=== PATIENT | male | born 1965 | race Caucasian/White ===

== ENCOUNTER 2017-08-01 20:10 | Emergency (ER) | payer MEDICAID, SELFPAY ==
[2017-08-01] MEDS ORDERED: CLOPIDOGREL 300 MG TAB (PLAVIX) ×2 (20:11)
[2017-08-01] MEDS ORDERED: HEPARIN 25,000 UNITS/250 ML D5W BAG (100 UNITS/ML) ×2 (20:11)
[2017-08-01] MEDS ORDERED: HEPARIN SOD (PORCINE) 5000 UNITS/ML VIAL ×2 (20:11)
[2017-08-01] MEDS ORDERED: ASPIRIN 81 MG CHEW TABLET ×2 (20:11)
[2017-08-01] MEDS: CLOPIDOGREL 300 MG TAB (PLAVIX) PO ×2 (20:44)
[2017-08-01] MEDS: ASPIRIN 81 MG CHEW TABLET PO ×2 (20:44)
[2017-08-01] MEDS: NS 1,000 ML IV ×2 (20:44)
[2017-08-01] MEDS: TENECTEPLASE 50 MG KIT (TNKase)(J3101) IV ×2 (20:45)
[2017-08-01] MEDS: MORPHINE 4 MG/ML 1ML VIAL (J2270) IV ×2 (20:48)
[2017-08-01] MEDS: HEPARIN SOD (PORCINE) 5000 UNITS/ML VIAL IV ×2 (20:49)
[2017-08-01] MEDS: HEPARIN DRIP 25,000 UNITS in APPROPRIATE DILUENT 1 EA IV (20:50)
[2017-08-01 20:52] LABS: HEMATOCRIT 45.7 % (42.0-52.0); MEAN CORPUSCULAR HEMOGLOBIN 30.5 pg (27.0-33.0); MEAN CORPUSCULAR VOLUME 87.2 fl (80.0-96.0); PLATELET COUNT, AUTOMATED 307 10^3/uL (150-450); RED BLOOD COUNT 5.24 10^6/uL (4.30-6.10); RED CELL DISTRIBUTION WIDTH 12.5 % (11.5-14.5)
[2017-08-01 20:54] LABS: ADD MANUAL DIFFER YES; DIFF SLIDE NUMBER 358; POSITIVE DIFF POS FLAG; WHITE BLOOD COUNT 14.2 10^3/uL (4.0-10.0)
[2017-08-01 20:58] LABS: PROTHROMBIN TIME 13.3 SECONDS (12.4-14.5)
[2017-08-01 20:59] LABS: PARTIAL THROMBOPLASTIN TIME 25.8 SECONDS (26.8-37.9)
[2017-08-01 21:03] LABS: ANION GAP 8 MEQ/L (8-16); BLOOD UREA NITROGEN 13 MG/DL (7-18); CALCIUM LEVEL 9.3 MG/DL (8.5-10.1); CARBON DIOXIDE LEVEL 27 MEQ/L (21-32); CHLORIDE LEVEL 106 MEQ/L (98-107); CPK CREATINE PHOSPHOKINASE 118 U/L (39-308); CREATININE FOR GFR 0.93 MG/DL (0.70-1.30); GLOMERULAR FILTRATION RATE > 60.0 (>56); GLUCOSE, FASTING 120 MG/DL (70-100); POTASSIUM SERUM 3.7 MEQ/L (3.5-5.1); SODIUM LEVEL 141 MEQ/L (136-145); TROPONIN I 0.05 NG/ML (< 0.10)
[2017-08-01 21:04] LABS: CK-MB VALUE MASS 1.2 NG/ML (0.0-3.6); MB/CK RELATIVE INDEX 1.01 (< OR =4)
[2017-08-01 21:08] LABS: ATYPICAL LYMPH 6 % (0-5); EOSINOPHILS 4 % (0-5); LYMPHOCYTES 42 % (16-52); MONOCYTES 4 % (0-8); NEUTROPHILS 44 % (35-75)
[2017-08-01 21:09] LABS: PLATELET ESTIMATE NORMAL (NORMAL)
[2017-08-01] MEDS: fentaNYL 100 MCG/2 ML INJECTION (J3010) IV ×2 (21:16)
== END 2017-08-01 21:34 | disposition short-term general hospital (02) ==
LOC: M ED 20:10
DX: I21.3 ST elevation (STEMI) myocardial infarction of unspecified site (principal); F41.9 Anxiety disorder, unspecified; Z91.010 Allergy to peanuts
CPT/HCPCS: J2270

== ENCOUNTER 2017-08-22 12:40 | Emergency (ER) | payer MEDICAID, SELFPAY ==
[2017-08-22 13:42] LABS: BASO # 0.1 10^3/uL (0.0-0.2); BASO % 0.5 % (0.0-1.0); EOS # 0.5 10^3/uL (0.0-0.50); HEMATOCRIT 45.7 % (42.0-52.0); HEMOGLOBIN 16.1 g/dl (14.0-18.0); IMMATURE GRANULOCYTE % 1.1 % (0-3.0); LYMPH # 2.8 10^3/uL (1.5-4.5); LYMPH % 26.3 % (24.0-44.0); MEAN CORPUSCULAR HEMOGLOBIN 30.3 pg (27.0-33.0); MEAN CORPUSCULAR HGB CONC 35.2 g/dl (32.0-36.5); MEAN CORPUSCULAR VOLUME 86.1 fl (80.0-96.0); MONO # 0.8 10^3/uL (0.0-0.8); MONO % 7.1 % (0.0-5.0); NEUTROPHILS # 6.4 10^3/uL (1.8-7.7); PLATELET COUNT, AUTOMATED 275 10^3/uL (150-450); RED BLOOD COUNT 5.31 10^6/uL (4.30-6.10); RED CELL DISTRIBUTION WIDTH 12.2 % (11.5-14.5); WHITE BLOOD COUNT 10.7 10^3/uL (4.0-10.0)
[2017-08-22 13:55] LABS: INR 0.99; PROTHROMBIN TIME 13.2 SECONDS (12.4-14.5)
[2017-08-22 13:56] LABS: PARTIAL THROMBOPLASTIN TIME 28.3 SECONDS (26.8-37.9)
[2017-08-22] MEDS: ASPIRIN 81 MG CHEW TABLET PO (14:15)
[2017-08-22 14:19] LABS: ALBUMIN 3.9 GM/DL (3.2-5.2); ALBUMIN/GLOBULIN RATIO 1.18 (1.00-1.93); ALKALINE PHOSPHATASE 138 U/L (45-117); ALT/SGPT 51 U/L (12-78); ANION GAP 8 MEQ/L (8-16); AST/SGOT 30 U/L (7-37); BILIRUBIN,DIRECT 0.2 MG/DL (0.0-0.2); BILIRUBIN,TOTAL 0.6 MG/DL (0.2-1.0); BLOOD UREA NITROGEN 14 MG/DL (7-18); CALCIUM LEVEL 8.7 MG/DL (8.5-10.1); CARBON DIOXIDE LEVEL 26 MEQ/L (21-32); CHLORIDE LEVEL 106 MEQ/L (98-107); CPK CREATINE PHOSPHOKINASE 117 U/L (39-308); CREATININE FOR GFR 0.72 MG/DL (0.70-1.30); FREE T4 0.96 NG/DL (0.76-1.46); GLOMERULAR FILTRATION RATE > 60.0 (>56); GLUCOSE, FASTING 95 MG/DL (70-100); LIPASE 149 U/L (73-393); POTASSIUM SERUM 4.5 MEQ/L (3.5-5.1); SODIUM LEVEL 140 MEQ/L (136-145); TOTAL PROTEIN 7.2 GM/DL (6.4-8.2); TROPONIN I < 0.02 NG/ML (< 0.10)
[2017-08-22 14:24] LABS: CK-MB VALUE MASS 1.4 NG/ML (0.0-3.6); MB/CK RELATIVE INDEX 1.19 (< OR =4)
[2017-08-22] MEDS: HEPARIN DRIP 25,000 UNITS in APPROPRIATE DILUENT 1 EA IV (15:06)
[2017-08-22] MEDS: HEPARIN SOD (PORCINE) 5000 UNITS/ML VIAL IV (15:15)
== END 2017-08-22 15:52 | disposition short-term general hospital (02) ==
LOC: M ED 12:40
DX: I25.110 Atherosclerotic heart disease of native coronary artery with unstable angina pectoris (principal); R00.1 Bradycardia, unspecified; I25.2 Old myocardial infarction; I11.9 Hypertensive heart disease without heart failure; E78.5 Hyperlipidemia, unspecified; Z95.5 Presence of coronary angioplasty implant and graft; F17.210 Nicotine dependence, cigarettes, uncomplicated; Z91.010 Allergy to peanuts; Z79.899 Other long term (current) drug therapy; Z79.02 Long term (current) use of antithrombotics/antiplatelets
CPT/HCPCS: 71045

== ENCOUNTER → 2018-02-15 | Outpatient (CLI) | payer OTHER | LOC: M CARPUL 10:44 | DX: F17.210 Nicotine dependence, cigarettes, uncomplicated (principal); R05 Cough; R06.02 Shortness of breath | CPT/HCPCS: 94010 ==

== ENCOUNTER → 2018-03-10 | Outpatient (CLI) | payer OTHER | LOC: M RAD 09:10 | DX: R05 Cough (principal); R06.02 Shortness of breath; J84.9 Interstitial pulmonary disease, unspecified | CPT/HCPCS: 71046 ==

== ENCOUNTER → 2018-04-19 | Outpatient (CLI) | payer OTHER ==
[~2018-04-19] MED LIST: ISOVUE-370 76% 100ML VIAL (Q9967) As Ordered
[2018-04-19 16:23] LABS: BASO % 0.3 % (0.0-1.0); EOS # 0.4 10^3/uL (0.0-0.50); EOS % 3.6 % (0.0-3.0); HEMATOCRIT 43.6 % (42.0-52.0); HEMOGLOBIN 14.4 g/dl (13.5-17.5); IMMATURE GRANULOCYTE % 0.6 % (0-3.0); LYMPH % 20.3 % (24.0-44.0); MEAN CORPUSCULAR HEMOGLOBIN 29.9 pg (27.0-33.0); MEAN CORPUSCULAR VOLUME 90.5 fl (80.0-96.0); MONO # 0.8 10^3/uL (0.0-0.8); NEUTROPHILS # 6.7 10^3/uL (1.8-7.7); NEUTROPHILS % 67.2 % (36.0-66.0); PLATELET COUNT, AUTOMATED 291 10^3/uL (150-450); RED BLOOD COUNT 4.82 10^6/uL (4.30-6.10); RED CELL DISTRIBUTION WIDTH 12.3 % (11.5-14.5)
[2018-04-19 16:56] LABS: ALBUMIN 3.7 GM/DL (3.2-5.2); ALBUMIN/GLOBULIN RATIO 1.37 (1.00-1.93); ALKALINE PHOSPHATASE 121 U/L (45-117); ALT/SGPT 30 U/L (12-78); ANION GAP 4 MEQ/L (8-16); AST/SGOT 24 U/L (7-37); BILIRUBIN,TOTAL 0.4 MG/DL (0.2-1.0); BLOOD UREA NITROGEN 11 MG/DL (7-18); CALCIUM LEVEL 8.3 MG/DL (8.5-10.1); CARBON DIOXIDE LEVEL 30 MEQ/L (21-32); CHLORIDE LEVEL 107 MEQ/L (98-107); FREE T4 0.96 NG/DL (0.76-1.46); GLOMERULAR FILTRATION RATE > 60.0 (>56); GLUCOSE, FASTING 99 MG/DL (70-100); SODIUM LEVEL 141 MEQ/L (136-145); THYROID STIMULATING HORMONE 0.945 uIU/ML (0.358-3.740); TOTAL PROTEIN 6.4 GM/DL (6.4-8.2)
[2018-04-19 17:01] LABS: APPEARANCE, URINE CLEAR (CLEAR); BACTERIA, URINE AUTO NEGATIVE (NEGATIVE); BILIRUBIN, URINE AUTO NEGATIVE (NEGATIVE); BLOOD, URINE BLOOD NEGATIVE (NEGATIVE); COLOR, URINE YELLOW (YELLOW); GLUCOSE, URINE (UA) AUTO NEGATIVE (NEGATIVE); KETONE, URINE AUTO NEGATIVE (NEGATIVE); LEUKOCYTE ESTERASE, URINE AUTO NEGATIVE (NEGATIVE); MUCUS, URINE SMALL (NEGATIVE); NITRITE, URINE AUTO NEGATIVE (NEGATIVE); PROTEIN, URINE AUTO NEGATIVE (NEGATIVE); RBC, URINE AUTO 0 /HPF (0-3); SPECIFIC GRAVITY URINE AUTO 1.051 (1.002-1.035); SQUAMOUS EPITHELIAL CELL UR AU 0 /HPF (0-6); WBC, URINE AUTO 1 /HPF (0-3)
== END ==
LOC: M RAD 15:10
DX: R04.2 Hemoptysis (principal); E78.5 Hyperlipidemia, unspecified; R53.83 Other fatigue
CPT/HCPCS: Q9967

== ENCOUNTER → 2018-08-11 | Outpatient (CLI) | payer OTHER ==
[~2018-08-11] MED LIST changes: +ATOR80TA59 PO; +E-Z-GAS II EFFERVESCENT PACKET (SODIUM BICARB./CITRIC ACID/SIMETHICONE) As Ordered ONE; +E-Z-HD 98% w/w 340GM SUSP BTL As Ordered ONE; +E-Z-PAQUE 96% w/w SUSP 176GM BTL As Ordered ONE; -ISOVUE-370 76% 100ML VIAL (Q9967) As Ordered; +LISI-542 PO; +METO1TAB32 PO; +PLAV1TAB2 PO
--- NOTE | 2018-08-14 10:58 | REP ---
Esophagram The procedure was performed under the direct supervision of Dr. Disla. The images were reviewed with Dr. Disla. A single view PA chest x-ray is submitted as a commercial credit specialist film. The superior mediastinal structures are midline. The heart size is within normal limits. The lungs are clear. Liquid barium and gas producing granules were given in the erect position as well as liquid barium in the prone oblique positions in order to perform a double contrast esophagram examination. The oral and pharyngeal stages of deglutition are unremarkable. Esophageal transport is prompt and efficient and there is no esophagitis, stricture, mucosal ring or hiatal hernia. Gastroesophageal reflux is not demonstrated on this examination. Impression: Essentially unremarkable double contrast esophagram examination. 0.5 minutes of fluoro time was utilized for this procedure. Reviewed by GALILEO Germain 08/11/2018 05:02 P Electronically Signed by Rick Disla MD 08/14/2018 10:50 A
== END ==
LOC: M RAD 10:21
PROVIDERS: ATTEND Nurse Practitioner Family
DX: R13.12 Dysphagia, oropharyngeal phase (principal)

== ENCOUNTER → 2018-09-13 | Outpatient (CLI) | payer OTHER ==
[~2018-09-13] MED LIST changes: -E-Z-GAS II EFFERVESCENT PACKET (SODIUM BICARB./CITRIC ACID/SIMETHICONE) As Ordered ONE; -E-Z-HD 98% w/w 340GM SUSP BTL As Ordered ONE; -E-Z-PAQUE 96% w/w SUSP 176GM BTL As Ordered ONE
[2018-09-13 11:37] LABS: ALBUMIN 4.1 GM/DL (3.2-5.2); ALT/SGPT 35 U/L (12-78); BILIRUBIN,TOTAL 0.7 MG/DL (0.2-1.0); BLOOD UREA NITROGEN 13 MG/DL (7-18); CALCIUM LEVEL 8.5 MG/DL (8.5-10.1); CARBON DIOXIDE LEVEL 27 MEQ/L (21-32); CHLORIDE LEVEL 105 MEQ/L (98-107); CHOLESTEROL LEVEL 110 MG/DL (<200); CHOLESTEROL RISK RATIO 2.894 (<5); CREATININE FOR GFR 0.76 MG/DL (0.70-1.30); GLOMERULAR FILTRATION RATE > 60.0 (>56); GLUCOSE, FASTING 122 MG/DL (70-100); HDL CHOLESTEROL 38 MG/DL (>40); LDL CHOLESTEROL 24 MG/DL (<100); NON-HDL-C 72 MG/DL; POTASSIUM SERUM 3.8 MEQ/L (3.5-5.1); SODIUM LEVEL 139 MEQ/L (136-145); TOTAL PROTEIN 6.9 GM/DL (6.4-8.2); TRIGLYCERIDES LEVEL 242 MG/DL (<150)
== END ==
LOC: M LAB 10:23
PROVIDERS: ATTEND Nurse Practitioner Family
DX: Z12.5 Encounter for screening for malignant neoplasm of prostate (principal); E78.5 Hyperlipidemia, unspecified

== ENCOUNTER → 2018-09-13 | Outpatient (CLI) | payer OTHER ==
[2018-09-13 11:37] LABS: ALT/SGPT 35 U/L (12-78); BLOOD UREA NITROGEN 13 MG/DL (7-18); CALCIUM LEVEL 8.6 MG/DL (8.5-10.1); CARBON DIOXIDE LEVEL 26 MEQ/L (21-32); CHLORIDE LEVEL 105 MEQ/L (98-107); CHOLESTEROL LEVEL 108 MG/DL (<200); CHOLESTEROL RISK RATIO 2.769 (<5); CPK CREATINE PHOSPHOKINASE 224 U/L (39-308); CREATININE FOR GFR 0.76 MG/DL (0.70-1.30); GLOMERULAR FILTRATION RATE > 60.0 (>56); GLUCOSE, FASTING 126 MG/DL (70-100); HDL CHOLESTEROL 39 MG/DL (>40); LDL CHOLESTEROL 19 MG/DL (<100); NON-HDL-C 69 MG/DL; POTASSIUM SERUM 3.7 MEQ/L (3.5-5.1); SODIUM LEVEL 140 MEQ/L (136-145); TRIGLYCERIDES LEVEL 248 MG/DL (<150)
== END ==
LOC: M LAB 10:19
PROVIDERS: ATTEND Internal Medicine Interventional Cardiology
DX: I25.10 Atherosclerotic heart disease of native coronary artery without angina pectoris (principal); E78.5 Hyperlipidemia, unspecified; I10 Essential (primary) hypertension

== ENCOUNTER 2018-10-03 11:01 | Day surgery (SDC) | payer OTHER ==
[~2018-10-03] VITALS: Ht 170.2 cm; Wt 76.1 kg
[~2018-10-03 11:01] MED LIST changes: +ASPI81TA85 PO; +INCR1INH INH; +NITR0.4S14 SL; +OMEP40CA2 PO; +VENTAER INH
[2018-10-03] MEDS ORDERED: NS 1,000 ML IV ONE (12:45)
[2018-10-03] MEDS ORDERED: PROPOFOL 200 MG/20 ML VIAL As Ordered ONE ×3 (13:24→14:38)
[2018-10-03] MEDS ORDERED: LIDOCAINE 2% INJ 100 MG/5 ML SDV (FOR ANES.) As Ordered ONE (13:24)
[2018-10-03] MEDS ORDERED: ASPIRIN 325 MG TAB PO ONE (14:00)
--- NOTE | 2018-10-03 14:29 | ROOR ---
Patient Name: Vidal Abbott Procedure Date: 10/03/2018 2:11 PM Date of : 1965 Age: 52 Room: [facility] Gender: Male Note Status: Finalized Procedure: Upper GI endoscopy Indications: Oropharyngeal phase dysphagia, Esophageal reflux Providers: Carlos DUPONT MD Referring MD: Concepcion Xiao NP Requesting Provider: Medicines: Monitored Anesthesia Care Complications: No immediate complications. Procedure: Pre-Anesthesia Assessment: - The heart rate, respiratory rate, oxygen saturations, blood pressure, adequacy of pulmonary ventilation, and response to care were monitored throughout the procedure. The Endoscope was introduced through the mouth, and advanced to the second part of duodenum. The upper GI endoscopy was accomplished without difficulty. The patient tolerated the procedure well. Findings: Small intermittent Hiatal Hernia. The exam was otherwise without abnormality. No endoscopic abnormality was evident in the esophagus to explain the patient's complaint of dysphagia. It was decided, however, to proceed with dilation at the cricopharyngeus and of the entire esophagus. The scope was withdrawn. Dilation was performed with a Rodriguez dilator with no resistance at 54 Fr. Impression: - Small sliding Hiatal Hernia. - The examination was otherwise normal. - No endoscopic esophageal abnormality to explain patient's dysphagia. Empiric dilation-Esophagus dilated with 54 F rodriguez dilator. - No specimens collected. Recommendation: - Observe patient's clinical course. - Continue present medications. - Use/get dentures for proper chewing/mastication before swallowing. Carlos Dupont MD Carlos DUPONT MD 10/03/2018 2:28:50 PM Electronically signed by Carlos DUPONT MD Number of Addenda: 0 Note Initiated On: 10/03/2018 2:11 PM Estimated Blood Loss: Estimated blood loss: none.
--- NOTE | 2018-10-03 14:47 | ROOR ---
Patient Name: Vidal Abbott Procedure Date: 10/03/2018 2:11 PM Date of : 1965 Age: 52 Room: [facility] Gender: Male Note Status: Finalized Procedure: Colonoscopy Indications: Screening for colorectal malignant neoplasm Providers: Carlos DUPONT MD Referring MD: Concepcion Xiao NP Requesting Provider: Medicines: Monitored Anesthesia Care Complications: No immediate complications. Procedure: Pre-Anesthesia Assessment: - The heart rate, respiratory rate, oxygen saturations, blood pressure, adequacy of pulmonary ventilation, and response to care were monitored throughout the procedure. The Colonoscope was introduced through the anus and advanced to the cecum, identified by appendiceal orifice and ileocecal valve. The colonoscopy was performed without difficulty. The patient tolerated the procedure well. The quality of the bowel preparation was adequate and fair. Findings: The perianal and digital rectal examinations were normal. Four sessile polyps were found in the rectum, splenic flexure and cecum. The polyps were diminutive in size. These polyps were removed with a cold snare. Resection and retrieval were complete. The exam was otherwise normal throughout the examined colon. Impression: - Preparation of the colon was fair. - Four diminutive polyps in the rectum, at the splenic flexure and in the cecum, removed with a cold snare. Resected and retrieved. - The exam was otherwise normal to the cecum. Recommendation: - Repeat colonoscopy in 3 years for surveillance. - Repeat colonoscopy in 3 years because the bowel preparation was suboptimal. Carlos Dupont MD Carlos DUPONT MD 10/03/2018 2:47:31 PM Electronically signed by Carlos DUPONT MD Number of Addenda: 0 Note Initiated On: 10/03/2018 2:11 PM Estimated Blood Loss: Estimated blood loss: none.
[2018-10-03 15:21] VITALS: BP 122/90
== END 2018-10-03 15:23 | disposition home or self-care (01) ==
LOC: M OPP 11:01
PROVIDERS: ATTEND Internal Medicine Gastroenterology
DX: Z12.11 Encounter for screening for malignant neoplasm of colon (principal); K62.1 Rectal polyp; K63.5 Polyp of colon; D12.0 Benign neoplasm of cecum; R13.12 Dysphagia, oropharyngeal phase; K21.9 Gastro-esophageal reflux disease without esophagitis; J44.9 Chronic obstructive pulmonary disease, unspecified; Z79.82 Long term (current) use of aspirin; Z79.899 Other long term (current) drug therapy; Z91.010 Allergy to peanuts; F17.210 Nicotine dependence, cigarettes, uncomplicated

== ENCOUNTER → 2018-10-23 | Outpatient (REF) | payer OTHER ==
[2018-10-23 14:11] LABS: ALBUMIN 3.8 GM/DL (3.2-5.2); ALT/SGPT 28 U/L (12-78); BILIRUBIN,TOTAL 0.6 MG/DL (0.2-1.0); BLOOD UREA NITROGEN 15 MG/DL (7-18); CALCIUM LEVEL 8.8 MG/DL (8.5-10.1); CARBON DIOXIDE LEVEL 28 MEQ/L (21-32); CHLORIDE LEVEL 106 MEQ/L (98-107); CREATININE FOR GFR 1.02 MG/DL (0.70-1.30); GLOMERULAR FILTRATION RATE > 60.0 (>56); GLUCOSE, FASTING 93 MG/DL (70-100); POTASSIUM SERUM 4.5 MEQ/L (3.5-5.1); SODIUM LEVEL 139 MEQ/L (136-145); TOTAL PROTEIN 7.3 GM/DL (6.4-8.2)
[2018-10-23 16:20] LABS: HEMOGLOBIN A1c 4.9 %
== END ==
LOC: M SFHCPLAZ 11:11
PROVIDERS: ATTEND Nurse Practitioner Family
DX: E78.5 Hyperlipidemia, unspecified (principal); R73.01 Impaired fasting glucose

== ENCOUNTER → 2019-03-15 | Outpatient (REF) | payer OTHER ==
[2019-03-15 12:32] LABS: HEMATOCRIT 47.7 % (42.0-52.0); HEMOGLOBIN 16.2 g/dl (13.5-17.5); MEAN CORPUSCULAR VOLUME 91.4 fl (80.0-96.0); PLATELET COUNT, AUTOMATED 280 10^3/uL (150-450); RED BLOOD COUNT 5.22 10^6/uL (4.30-6.10); WHITE BLOOD COUNT 9.8 10^3/uL (4.0-10.0)
[2019-03-15 13:02] LABS: ALBUMIN 4.1 GM/DL (3.2-5.2); ALT/SGPT 27 U/L (12-78); BILIRUBIN,TOTAL 0.7 MG/DL (0.2-1.0); BLOOD UREA NITROGEN 11 MG/DL (7-18); CALCIUM LEVEL 9.4 MG/DL (8.5-10.1); CARBON DIOXIDE LEVEL 28 MEQ/L (21-32); CHLORIDE LEVEL 102 MEQ/L (98-107); CREATININE FOR GFR 0.87 MG/DL (0.70-1.30); GLOMERULAR FILTRATION RATE > 60.0 (>56); GLUCOSE, FASTING 84 MG/DL (70-100); POTASSIUM SERUM 4.5 MEQ/L (3.5-5.1); SODIUM LEVEL 137 MEQ/L (136-145); TOTAL PROTEIN 7.3 GM/DL (6.4-8.2)
== END ==
LOC: M SFHCPLAZ 09:14
PROVIDERS: ATTEND Nurse Practitioner Family
DX: E78.5 Hyperlipidemia, unspecified (principal); R73.01 Impaired fasting glucose; I25.10 Atherosclerotic heart disease of native coronary artery without angina pectoris

== ENCOUNTER → 2019-06-18 | Outpatient (CLI) | payer OTHER ==
[~2019-06-18] MED LIST changes: -OMEP40CA2 PO; +OMEP40CA97 PO
--- NOTE | 2019-06-19 02:00 | REPPI ---
Clinical: Chronic obstructive pulmonary disease . Comparison: 03/10/2018 . Technique: PA and lateral. Findings: The mediastinum and cardiac silhouette are normal. The lung marina are clear and without acute consolidation, effusion, or pneumothorax. The skeletal structures are intact and normal. Impression: 1. No acute cardiopulmonary process. Electronically Signed by Marquise Nixon MD 06/19/2019 01:51 A
== END ==
LOC: M PLAIMG 09:47
PROVIDERS: ATTEND Physician Assistant
DX: J44.9 Chronic obstructive pulmonary disease, unspecified (principal)

== ENCOUNTER 2019-09-17 08:58 | Emergency (ER) | payer OTHER ==
[~2019-09-17] VITALS: Ht 170.2 cm; Wt 75.0 kg
[2019-09-17] MEDS ORDERED: KETOROLAC 30 MG/ML VIAL (J1885) IV ONE (09:15)
[2019-09-17] MEDS ORDERED: KETOROLAC 30 MG/ML VIAL (J1885) As Ordered ONE (09:16)
[2019-09-17 09:25] LABS: BASO % 0.6 % (0.0-1.0); EOS # 0.3 10^3/uL (0.0-0.5); HEMATOCRIT 44.1 % (42.0-52.0); LYMPH # 1.7 10^3/uL (1.5-5.0); LYMPH % 23.4 % (24.0-44.0); MEAN CORPUSCULAR HEMOGLOBIN 30.3 pg (27.0-33.0); MEAN CORPUSCULAR VOLUME 89.1 fl (80.0-96.0); MONO # 0.6 10^3/uL (0.0-0.8); MONO % 8.8 % (0.0-5.0); NEUTROPHILS # 4.5 10^3/uL (1.5-8.5); NEUTROPHILS % 62.2 % (36.0-66.0); PLATELET COUNT, AUTOMATED 232 10^3/uL (150-450); RED BLOOD COUNT 4.95 10^6/uL (4.30-6.10); WHITE BLOOD COUNT 7.3 10^3/uL (4.0-10.0)
[2019-09-17 09:50] LABS: BILIRUBIN,DIRECT 0.2 MG/DL (0.0-0.2); BILIRUBIN,TOTAL 0.6 MG/DL (0.2-1.0)
[2019-09-17] MEDS ORDERED: NS 1,000 ML IV SCH (10:00)
--- NOTE | 2019-09-17 10:20 | REP ---
REASON: Right flank pain. COMPARISON: Latest prior 12/02/2014 Lung bases are clear. There is very mild very early cylindrical bronchiectasis. Since the last exam, a 3 mm sized calcification has developed in the interpolar region of the right kidney. In addition, there is mild right-sided hydronephrosis and hydroureter. At the level of the ureterovesical junction in the right, there is a 4 mm size calcification. All of this represents a change from the prior exam. The left kidney and collecting system are within normal limits and unchanged. Limited evaluation of the solid intra-abdominal organs and gallbladder show diffuse low density throughout the liver consistent with fatty infiltration. There are no choleliths. The spleen, pancreas, and adrenal glands are unremarkable and unchanged. The abdominal aorta and paraaortic regions are unremarkable and unchanged. There is no free fluid or free air. The bowel loops and their mesenteries are again seen to be within normal limits. IMPRESSION: 1. There is mild right-sided hydronephrosis and hydroureter secondary to calculus in the distal ureter/ureterovesical junction as described above. In addition, there is a new right-sided nephrolith as described above. 2. Fatty infiltration of the liver. Electronically Signed by Saqib Woodard DO 09/17/2019 11:51 A
[2019-09-17] MEDS ORDERED: OXYC1TAB23 PO (11:17)
[2019-09-17 11:26] VITALS: BP 130/78
== END 2019-09-17 11:36 | disposition home or self-care (01) ==
LOC: M ED 08:58
DX: N20.1 Calculus of ureter (principal); I10 Essential (primary) hypertension; I25.2 Old myocardial infarction; E78.5 Hyperlipidemia, unspecified; Z95.5 Presence of coronary angioplasty implant and graft; Z79.899 Other long term (current) drug therapy; Z79.82 Long term (current) use of aspirin; Z79.01 Long term (current) use of anticoagulants; Z91.010 Allergy to peanuts; F17.210 Nicotine dependence, cigarettes, uncomplicated
CPT/HCPCS: 74176; 80047; 80076; 81001; 83690; 85025; 93041; 96361; 96374; 99285; J1885

== ENCOUNTER 2019-12-06 10:25 | Emergency (ER) | payer OTHER ==
[~2019-12-06] VITALS: Ht 170.2 cm; Wt 76.1 kg
[~2019-12-06 10:25] MED LIST changes: +OXYC1TAB23 PO
--- NOTE | 2019-12-06 12:03 | REP ---
Clinical: Fall. Technique: AP, lateral, bilateral oblique views of the right wrist. Findings: Small ulnar styloid fracture is suggested and should be correlated clinically. Carpal bones and distal radius appear intact. No further acute fracture or dislocation identified. Impression: Acute versus old ulnar styloid fracture. No further acute fracture dislocation identified. Electronically Signed by Marquise Nixon MD 12/06/2019 11:55 A
[2019-12-06 12:22] VITALS: BP 139/81
== END 2019-12-06 12:24 | disposition home or self-care (01) ==
LOC: M ED 10:25
DX: S63.501A Unspecified sprain of right wrist, initial encounter (principal); S52.611A Displaced fracture of right ulna styloid process, initial encounter for closed fracture; W01.0XXA Fall on same level from slipping, tripping and stumbling without subsequent striking against object, initial encounter; Y92.480 Sidewalk as the place of occurrence of the external cause; I25.10 Atherosclerotic heart disease of native coronary artery without angina pectoris; Z79.899 Other long term (current) drug therapy; Z79.82 Long term (current) use of aspirin; Z79.01 Long term (current) use of anticoagulants; Z91.010 Allergy to peanuts; Z87.891 Personal history of nicotine dependence

== ENCOUNTER 2019-12-20 18:15 | Emergency (ER) | payer OTHER ==
[~2019-12-20] VITALS: Ht 170.2 cm; Wt 76.2 kg
[~2019-12-20 18:15] MED LIST changes: -ASPI81TA85 PO; +ASPI81TA86 PO
[2019-12-20] MEDS ORDERED: ASPIRIN 81 MG CHEW TABLET PO ONE (19:00)
[2019-12-20 19:25] LABS: BASO % 0.3 % (0.0-1.0); EOS # 0.5 10^3/uL (0.0-0.5); EOS % 4.8 % (0.0-3.0); HEMATOCRIT 46.3 % (42.0-52.0); HEMOGLOBIN 15.8 g/dl (13.5-17.5); LYMPH # 2.2 10^3/uL (1.5-5.0); LYMPH % 23.4 % (24.0-44.0); MEAN CORPUSCULAR HEMOGLOBIN 30.3 pg (27.0-33.0); MEAN CORPUSCULAR HGB CONC 34.1 g/dl (32.0-36.5); MEAN CORPUSCULAR VOLUME 88.7 fl (80.0-96.0); MONO # 0.8 10^3/uL (0.0-0.8); MONO % 8.2 % (0.0-5.0); NEUTROPHILS # 5.9 10^3/uL (1.5-8.5); NEUTROPHILS % 62.1 % (36.0-66.0); PLATELET COUNT, AUTOMATED 258 10^3/uL (150-450); RED BLOOD COUNT 5.22 10^6/uL (4.30-6.10); WHITE BLOOD COUNT 9.5 10^3/uL (4.0-10.0)
[2019-12-20 20:38] LABS: ALBUMIN 3.9 GM/DL (3.2-5.2); ALT/SGPT 37 U/L (12-78); BILIRUBIN,DIRECT < 0.1 MG/DL (0.0-0.2); BILIRUBIN,TOTAL 0.4 MG/DL (0.2-1.0); LIPASE 120 U/L (73-393); NT-PRO BNP 60 PG/ML (<125); TOTAL PROTEIN 7.1 GM/DL (6.4-8.2)
--- NOTE | 2019-12-20 20:59 | ECGEPIP ---
[facility] - ED Test Date: 2019-12-20 Pat Name: RONDA MEREDITH Department: Room: - Gender: Male Mortgage Funder: : [id number] Requested By: Paty Chung Order Number: [id number] Reading MD: Kenney Romo Measurements Intervals [place] Rate: 79 P: 33 WV: 133 QRS: 11 QRSD: 105 T: 5 QT: 371 QTc: 426 Interpretive Statements SINUS RHYTHM INFERIOR MYOCARDIAL INFARCTION, PROBABLY OLD NSTTW ABNORMALITIES SIMILAR TO 08/22/17 Electronically Signed on 12-20-2019 20:59:48 EDT by Kenney Romo
[2019-12-20 21:15] VITALS: BP 152/96
--- NOTE | 2019-12-21 01:12 | REP ---
CHEST, SINGLE VIEW: There is no evidence of acute infiltrate. No pleural effusion is seen. The heart is normal in size. The mediastinal silhouette is unremarkable. The visualized osseous structures are intact. IMPRESSION: No acute pulmonary disease. Electronically Signed by Rick Disla MD 12/24/2019 09:17 A
== END 2019-12-20 21:27 | disposition home or self-care (01) ==
LOC: M ED 18:15
DX: R07.81 Pleurodynia (principal); R94.31 Abnormal electrocardiogram [ECG] [EKG]; I10 Essential (primary) hypertension; K21.9 Gastro-esophageal reflux disease without esophagitis; E78.5 Hyperlipidemia, unspecified; I25.2 Old myocardial infarction; Z79.82 Long term (current) use of aspirin; Z79.01 Long term (current) use of anticoagulants; Z79.899 Other long term (current) drug therapy; Z95.5 Presence of coronary angioplasty implant and graft; Z91.010 Allergy to peanuts

== ENCOUNTER → 2020-08-11 | Outpatient (CLI) | payer OTHER ==
[~2020-08-11] MED LIST changes: -LISI-542 PO; +LISI-898 PO
[2020-08-11 10:57] LABS: HEMATOCRIT 47.6 % (42.0-52.0); MEAN CORPUSCULAR HEMOGLOBIN 29.9 pg (27.0-33.0); MEAN CORPUSCULAR HGB CONC 33.6 g/dl (32.0-36.5); PLATELET COUNT, AUTOMATED 252 10^3/uL (150-450); RED BLOOD COUNT 5.35 10^6/uL (4.30-6.10)
[2020-08-11 11:29] LABS: ALBUMIN 4.1 GM/DL (3.2-5.2); ALT/SGPT 29 U/L (12-78); BILIRUBIN,TOTAL 0.4 MG/DL (0.2-1.0); BLOOD UREA NITROGEN 14 MG/DL (7-18); CALCIUM LEVEL 8.9 MG/DL (8.5-10.1); CARBON DIOXIDE LEVEL 29 MEQ/L (21-32); CHLORIDE LEVEL 106 MEQ/L (98-107); CHOLESTEROL LEVEL 187 MG/DL (<200); CREATININE FOR GFR 0.81 MG/DL (0.70-1.30); GLOMERULAR FILTRATION RATE > 60.0 (>56); GLUCOSE, FASTING 115 MG/DL (70-100); HDL CHOLESTEROL 41 MG/DL (>40); LDL CHOLESTEROL 73 MG/DL (<100); NON-HDL-C 146 MG/DL; POTASSIUM SERUM 4.1 MEQ/L (3.5-5.1); PROSTATIC SPECIFIC AG MONITOR 3.16 NG/ML (< 4.00); SODIUM LEVEL 138 MEQ/L (136-145); TOTAL PROTEIN 6.9 GM/DL (6.4-8.2); TRIGLYCERIDES LEVEL 363 MG/DL (<150)
== END ==
LOC: M LAB 09:56
PROVIDERS: ATTEND Physician Assistant
DX: Z13.1 Encounter for screening for diabetes mellitus (principal); Z12.5 Encounter for screening for malignant neoplasm of prostate; E78.5 Hyperlipidemia, unspecified; J44.9 Chronic obstructive pulmonary disease, unspecified

== ENCOUNTER 2020-09-14 17:09 | Emergency (ER) | payer OTHER ==
[~2020-09-14] VITALS: Ht 170.2 cm; Wt 76.2 kg
[2020-09-14] MEDS ORDERED: DOXY-342 PO (17:40)
[2020-09-14] MEDS ORDERED: DOXYCYCLINE HYCLATE 100MG TABLET PO ONE (17:45)
[2020-09-14] MEDS ORDERED: NORCO, ANEXSIA 5/325MG TABLET (HYDROcodone/ACETAMINOPHEN) PO ONE (18:05)
[2020-09-14 18:49] VITALS: BP 167/83
== END 2020-09-14 18:51 | disposition home or self-care (01) ==
LOC: M ED 17:09
DX: L03.116 Cellulitis of left lower limb (principal); I10 Essential (primary) hypertension; J44.9 Chronic obstructive pulmonary disease, unspecified; I25.10 Atherosclerotic heart disease of native coronary artery without angina pectoris; Z95.5 Presence of coronary angioplasty implant and graft; Z79.899 Other long term (current) drug therapy; Z79.82 Long term (current) use of aspirin; Z91.010 Allergy to peanuts; F17.210 Nicotine dependence, cigarettes, uncomplicated

== ENCOUNTER → 2020-09-17 | Outpatient (REF) | payer OTHER ==
[~2020-09-17] MED LIST changes: +DOXY-342 PO
== END ==
LOC: M SFHCPLAZ 12:50 → EEVIPCON 12:50
PROVIDERS: ATTEND Nurse Practitioner Adult Health
DX: L03.116 Cellulitis of left lower limb (principal)

== ENCOUNTER → 2021-12-17 | Outpatient (CLI) | payer OTHER ==
[~2021-12-17] MED LIST changes: +CIPR0.3S6 OS; +ERYT5OIN25 OS; -LISI-898 PO; +LISI5TAB11 PO; +OMEP40CA4 PO; -OMEP40CA97 PO
== END ==
LOC: M LABSMTC 09:26
PROVIDERS: ATTEND Anesthesiology
DX: Z11.52 Encounter for screening for COVID-19 (principal); Z20.822 Contact with and (suspected) exposure to COVID-19

== ENCOUNTER → 2022-01-04 | Outpatient (CLI) | payer OTHER ==
[~2022-01-04] MED LIST changes: +CETI-24 PO; +ECOT81TA5 PO
== END ==
LOC: M LABSMTC 09:19
PROVIDERS: ATTEND Anesthesiology
DX: Z01.818 Encounter for other preprocedural examination (principal); Z11.52 Encounter for screening for COVID-19

== ENCOUNTER → 2022-02-01 | Outpatient (CLI) | payer OTHER ==
[~2022-02-01] MED LIST changes: +LEXA5TAB13 PO
== END ==
LOC: M LABSMTC 10:24
PROVIDERS: ATTEND Anesthesiology
DX: Z01.818 Encounter for other preprocedural examination (principal); Z11.52 Encounter for screening for COVID-19

== ENCOUNTER → 2022-04-13 | Outpatient (CLI) | payer OTHER ==
[~2022-04-13] MED LIST changes: +CLOP75TA99 PO; -DOXY-342 PO; +DOXY100C81 PO; -PLAV1TAB2 PO
[2022-04-13 10:45] LABS: BASO # 0.1 10^3/uL (0.0-0.2); BASO % 0.6 % (0.0-1.0); EOS # 0.5 10^3/uL (0.0-0.5); EOS % 5.6 % (0.0-3.0); HEMATOCRIT 44.9 % (42.0-52.0); HEMOGLOBIN 15.1 g/dl (13.5-17.5); LYMPH # 1.8 10^3/uL (1.5-5.0); LYMPH % 19.6 % (24.0-44.0); MEAN CORPUSCULAR HEMOGLOBIN 30.3 pg (27.0-33.0); MEAN CORPUSCULAR HGB CONC 33.6 g/dl (32.0-36.5); MEAN CORPUSCULAR VOLUME 90.2 fl (80.0-96.0); MONO # 0.7 10^3/uL (0.0-0.8); MONO % 8.1 % (2.0-8.0); NEUTROPHILS # 5.8 10^3/uL (1.5-8.5); NEUTROPHILS % 65.2 % (36.0-66.0); PLATELET COUNT, AUTOMATED 347 10^3/uL (150-450); RED BLOOD COUNT 4.98 10^6/uL (4.30-6.10)
[2022-04-13 15:22] LABS: ALBUMIN 3.8 GM/DL (3.2-5.2); ALT/SGPT 58 U/L (12-78); BILIRUBIN,TOTAL 0.4 MG/DL (0.2-1.0); BLOOD UREA NITROGEN 10 MG/DL (7-18); CALCIUM LEVEL 8.9 MG/DL (8.5-10.1); CARBON DIOXIDE LEVEL 26 MEQ/L (21-32); CHLORIDE LEVEL 106 MEQ/L (98-107); GLOMERULAR FILTRATION RATE > 60.0 (>56); GLUCOSE, FASTING 87 MG/DL (70-100); POTASSIUM SERUM 4.1 MEQ/L (3.5-5.1); SODIUM LEVEL 140 MEQ/L (136-145); TOTAL PROTEIN 7.9 GM/DL (6.4-8.2)
== END ==
LOC: M PLALAB 09:48
PROVIDERS: ATTEND Physician Assistant
DX: L02.419 Cutaneous abscess of limb, unspecified (principal); Z12.5 Encounter for screening for malignant neoplasm of prostate
CPT/HCPCS: 36415; 80053; 84153; 85025; 87040; 87522; G0472

== ENCOUNTER → 2022-05-13 | Outpatient (CLI) | payer OTHER | LOC: M LABSMTC 10:32 | PROVIDERS: ATTEND Anesthesiology | DX: Z01.812 Encounter for preprocedural laboratory examination (principal); Z11.52 Encounter for screening for COVID-19 ==

== ENCOUNTER 2022-05-18 08:13 | Day surgery (SDC) | payer OTHER ==
[~2022-05-18] VITALS: Ht 170.2 cm; Wt 55.3 kg
[~2022-05-18 08:13] MED LIST changes: +NS 1,000 ML IV ONE
[2022-05-18 10:08] VITALS: BP 131/74
== END 2022-05-18 11:20 | disposition home or self-care (01) ==
LOC: M OPP 08:13
PROVIDERS: ATTEND Internal Medicine Gastroenterology
DX: Z12.11 Encounter for screening for malignant neoplasm of colon (principal); Z86.010 Personal history of colon polyps; I10 Essential (primary) hypertension; J44.9 Chronic obstructive pulmonary disease, unspecified; I20.9 Angina pectoris, unspecified; E78.00 Pure hypercholesterolemia, unspecified; Z91.011 Allergy to milk products; Z80.52 Family history of malignant neoplasm of bladder; Z80.1 Family history of malignant neoplasm of trachea, bronchus and lung

== ENCOUNTER → 2022-06-28 | Outpatient (CLI) | payer OTHER ==
[~2022-06-28] MED LIST changes: -NS 1,000 ML IV ONE
[2022-06-29 23:20] LABS: PSA TOTAL 3.1 ng/mL (0.0-4.0)
== END ==
LOC: M PLALAB 08:48
PROVIDERS: ATTEND Physician Assistant
DX: R97.20 Elevated prostate specific antigen [PSA] (principal)

== ENCOUNTER → 2022-07-05 | Outpatient (CLI) | payer OTHER ==
[2022-07-05 21:19] LABS: HEPATITIS B SURFACE ANTIGEN NEGATIVE (NEGATIVE); HIV 1&2 SCREEN CENTAUR NEGATIVE (NEGATIVE)
== END ==
LOC: M PLALAB 10:20
PROVIDERS: ATTEND Internal Medicine Infectious Disease
DX: B18.2 Chronic viral hepatitis C (principal)

== ENCOUNTER → 2022-07-05 | Outpatient (REF) | payer OTHER | LOC: M SFHCPLAZ 13:11 | PROVIDERS: ATTEND Internal Medicine Infectious Disease | DX: L02.92 Furuncle, unspecified (principal) ==

== ENCOUNTER → 2022-07-08 | Outpatient (CLI) | payer OTHER | LOC: M PLAIMG 12:03 | PROVIDERS: ATTEND Physician Assistant | DX: J43.9 Emphysema, unspecified (principal); R91.1 Solitary pulmonary nodule ==

== ENCOUNTER → 2022-08-02 | Outpatient (CLI) | payer OTHER ==
[~2022-08-02] MED LIST changes: +BUPR75TA5 PO; +EPCL1TAB PO; +FAMO20TA PO; +TRAZ-252 PO
== END ==
LOC: M LABSMTC 11:52
PROVIDERS: ATTEND Anesthesiology
DX: Z01.812 Encounter for preprocedural laboratory examination (principal)

== ENCOUNTER 2022-08-05 08:28 | Day surgery (SDC) | payer OTHER ==
[~2022-08-05] VITALS: Ht 170.2 cm; Wt 72.6 kg
[~2022-08-05 08:28] MED LIST changes: +NS 1,000 ML IV ONE
[2022-08-05 10:10] VITALS: BP 155/65
[2022-08-05] MEDS ORDERED: propofoL 200 MG/20 ML VIAL As Ordered ONE (10:14)
[2022-08-05] MEDS ORDERED: LIDOCAINE 2% 100MG/5ML SDV (FOR ANES.) As Ordered ONE (10:14)
== END 2022-08-05 10:13 | disposition home or self-care (01) ==
LOC: M OPP 08:28
PROVIDERS: ATTEND Internal Medicine Gastroenterology
DX: Z86.010 Personal history of colon polyps (principal); I25.10 Atherosclerotic heart disease of native coronary artery without angina pectoris; I25.2 Old myocardial infarction; I10 Essential (primary) hypertension; E78.5 Hyperlipidemia, unspecified; K21.9 Gastro-esophageal reflux disease without esophagitis; B19.20 Unspecified viral hepatitis C without hepatic coma; F41.9 Anxiety disorder, unspecified; F32.A Depression, unspecified; F43.10 Post-traumatic stress disorder, unspecified; J44.9 Chronic obstructive pulmonary disease, unspecified; G47.30 Sleep apnea, unspecified; F17.210 Nicotine dependence, cigarettes, uncomplicated; Z95.5 Presence of coronary angioplasty implant and graft; Z91.010 Allergy to peanuts; Z79.01 Long term (current) use of anticoagulants; Z79.82 Long term (current) use of aspirin; Z79.51 Long term (current) use of inhaled steroids; Z79.899 Other long term (current) drug therapy; Z82.49 Family history of ischemic heart disease and other diseases of the circulatory system; Z80.52 Family history of malignant neoplasm of bladder; Z80.51 Family history of malignant neoplasm of kidney; Z80.1 Family history of malignant neoplasm of trachea, bronchus and lung

== ENCOUNTER 2022-10-06 16:40 | Inpatient (IN) | payer OTHER ==
[~2022-10-06] VITALS: Ht 170.2 cm; Wt 75.3 kg
[~2022-10-06 16:40] MED LIST changes: +CIPR0.3S37 OS; -CIPR0.3S6 OS; -NS 1,000 ML IV ONE
[2022-10-06] MEDS ORDERED: NS 2,260 ML in IV 1 EA IV ONE (17:10)
[2022-10-06 17:17] LABS: BASO % 0.2 % (0.0-1.0); HEMOGLOBIN 13.8 g/dl (13.5-17.5); LYMPH # 0.7 10^3/uL (1.5-5.0); LYMPH % 5.7 % (24.0-44.0); MEAN CORPUSCULAR HEMOGLOBIN 29.7 pg (27.0-33.0); MEAN CORPUSCULAR HGB CONC 33.7 g/dl (32.0-36.5); MEAN CORPUSCULAR VOLUME 88.2 fl (80.0-96.0); MONO # 0.8 10^3/uL (0.0-0.8); MONO % 5.8 % (2.0-8.0); NEUTROPHILS # 11.2 10^3/uL (1.5-8.5); NEUTROPHILS % 87.3 % (36.0-66.0); PLATELET COUNT, AUTOMATED 275 10^3/uL (150-450); RED BLOOD COUNT 4.65 10^6/uL (4.30-6.10); WHITE BLOOD COUNT 12.9 10^3/uL (4.0-10.0)
[2022-10-06 17:31] LABS: INR 1.07; PROTHROMBIN TIME 14.1 SECONDS (12.5-14.5)
[2022-10-06 17:37] LABS: CK-MB VALUE MASS < 1.0 NG/ML (<3.6); LIPASE 20 U/L (12-53)
[2022-10-06 17:39] LABS: ALBUMIN 3.6 G/DL (3.2-5.2); ALKALINE PHOSPHATASE 138 U/L (46-116); ALT/SGPT 14 U/L (7.0-40); AST/SGOT 21 U/L (<34); BILIRUBIN,DIRECT 0.4 MG/DL (<0.4); BILIRUBIN,TOTAL 1.1 MG/DL (0.3-1.2); BLOOD UREA NITROGEN 13 MG/DL (9-23); CALCIUM LEVEL 8.7 MG/DL (8.5-10.1); CARBON DIOXIDE LEVEL 24 MMOL/L (20-31); CHLORIDE LEVEL 98 MMOL/L (98-107); CREATININE FOR GFR 0.85 MG/DL (0.70-1.30); GLOMERULAR FILTRATION RATE > 60.0 (>56); GLUCOSE, FASTING 120 MG/DL (60-100); POTASSIUM SERUM 4.2 MMOL/L (3.5-5.1); SODIUM LEVEL 130 MMOL/L (136-145); TOTAL PROTEIN 6.9 G/DL (5.7-8.2)
[2022-10-06 17:42] LABS: FREE T4 0.83 NG/DL (0.89-1.76)
[2022-10-06 17:44] LABS: THYROID STIMULATING HORMONE 0.592 uIU/ML (0.55-4.78)
[2022-10-06 17:48] LABS: CPK CREATINE PHOSPHOKINASE 182 U/L (46-171); MB/CK RELATIVE INDEX 0.54 (< OR =4)
[2022-10-06] MEDS ORDERED: ACETAMINOPHEN TAB 650MG DOSE (2X325MG) PO ONE (17:50)
[2022-10-06 18:55] LABS: CK-MB VALUE MASS < 1.0 NG/ML (<3.6)
[2022-10-06 18:56] LABS: CPK CREATINE PHOSPHOKINASE 155 U/L (46-171); MB/CK RELATIVE INDEX 0.64 (< OR =4)
[2022-10-06 19:08] LABS: APPEARANCE, URINE CLEAR (CLEAR); BACTERIA, URINE AUTO NEGATIVE (NEGATIVE); BILIRUBIN, URINE AUTO NEGATIVE (NEGATIVE); BLOOD, URINE BLOOD NEGATIVE (NEGATIVE); COLOR, URINE YELLOW (YELLOW); GLUCOSE, URINE (UA) AUTO NEGATIVE (NEGATIVE); KETONE, URINE AUTO NEGATIVE (NEGATIVE); LEUKOCYTE ESTERASE, URINE AUTO NEGATIVE (NEGATIVE); MUCUS, URINE SMALL (NEGATIVE); NITRITE, URINE AUTO NEGATIVE (NEGATIVE); PROTEIN, URINE AUTO NEGATIVE (NEGATIVE); RBC, URINE AUTO 0 /HPF (0-3); SPECIFIC GRAVITY URINE AUTO 1.023 (1.002-1.035); SQUAMOUS EPITHELIAL CELL UR AU 0 /HPF (0-6); WBC, URINE AUTO 1 /HPF (0-3)
[2022-10-06 19:31] LABS: AMPHETAMINES LEVEL URINE NEGATIVE (NEGATIVE); BARBITURATES URINE NEGATIVE (NEGATIVE); BENZODIAZEPINES URINE NEGATIVE (NEGATIVE); CANNABINOIDS URINE NEGATIVE (NEGATIVE); METHADONE URINE NEGATIVE (NEGATIVE); PHENCYCLIDINE URINE NEGATIVE (NEGATIVE)
[2022-10-06 19:32] LABS: OPIATES URINE NEGATIVE (NEGATIVE)
[2022-10-06 19:38] LABS: COCAINE METABOLITE URINE POSITIVE (NEGATIVE)
[2022-10-06] MEDS ORDERED: CEFTAROLINE FOSAMIL 600 MG in D5W MINI-BAG PLUS 50 ML IV ONE (20:05)
[2022-10-06] MEDS ORDERED: ESCITALOPRAM OXALATE 10 MG TAB (LEXAPRO) PO SCH (21:00)
[2022-10-06] MEDS ORDERED: LEXA1TAB PO (22:34)
[2022-10-06] MEDS ORDERED: ALBU8.5H INH (22:34)
[2022-10-06] MEDS ORDERED: INCR1INH INH (22:34)
[2022-10-06] MEDS ORDERED: IBUP1TAB7 PO (22:34)
[2022-10-06] MEDS ORDERED: NITR4TASL SL (22:34)
[2022-10-06] MEDS ORDERED: ASPI-655 PO (22:34)
[2022-10-06] MEDS ORDERED: HOME MED LIST COMPLETE! XX SCH (22:40)
[2022-10-06] MEDS ORDERED: NS 1,000 ML IV SCH (23:25)
[2022-10-07] MEDS ORDERED: FAMOTIDINE 20 MG TAB PO PRN (00:25)
[2022-10-07] MEDS ORDERED: IBUPROFEN 800 MG TAB PO PRN (00:25)
[2022-10-07] MEDS ORDERED: ALBUTEROL 90 MCG/ACT 8GM HFA INHALER INH PRN (00:25)
[2022-10-07] MEDS ORDERED: VANCOMYCIN HCL 750 MG, VIAL MATE ADAPTER 1 EACH in D5W 250 ML IV ONE ×4 (01:00)
[2022-10-07 06:10] LABS: HEMATOCRIT 37.4 % (42.0-52.0); HEMOGLOBIN 12.4 g/dl (13.5-17.5); MEAN CORPUSCULAR HEMOGLOBIN 29.9 pg (27.0-33.0); MEAN CORPUSCULAR HGB CONC 33.2 g/dl (32.0-36.5); MEAN CORPUSCULAR VOLUME 90.1 fl (80.0-96.0); PLATELET COUNT, AUTOMATED 239 10^3/uL (150-450); RED BLOOD COUNT 4.15 10^6/uL (4.30-6.10); WHITE BLOOD COUNT 10.4 10^3/uL (4.0-10.0)
[2022-10-07 07:05] LABS: ALBUMIN 3.1 G/DL (3.2-5.2); ALKALINE PHOSPHATASE 117 U/L (46-116); ALT/SGPT 14 U/L (7.0-40); AST/SGOT 19 U/L (<34); BILIRUBIN,TOTAL 0.9 MG/DL (0.3-1.2); BLOOD UREA NITROGEN 12 MG/DL (9-23); CALCIUM LEVEL 8.1 MG/DL (8.5-10.1); CARBON DIOXIDE LEVEL 23 MMOL/L (20-31); CHLORIDE LEVEL 101 MMOL/L (98-107); CREATININE FOR GFR 0.77 MG/DL (0.70-1.30); GLOMERULAR FILTRATION RATE > 60.0 (>56); GLUCOSE, FASTING 107 MG/DL (60-100); MAGNESIUM LEVEL 1.7 MG/DL (1.8-2.4); POTASSIUM SERUM 4.2 MMOL/L (3.5-5.1); SODIUM LEVEL 133 MMOL/L (136-145); TOTAL PROTEIN 6.3 G/DL (5.7-8.2)
[2022-10-07] MEDS ORDERED: MAG SULF 1GM/100ML (MAG RUN) 1 GM in IV 1 EA IV ONE (08:30)
[2022-10-07 08:40] VITALS: BP 130/76
[2022-10-07 08:53] VITALS: BP 130/73
[2022-10-07] MEDS ORDERED: buPROPion 75 MG TAB PO SCH (09:00)
[2022-10-07] MEDS ORDERED: ATORVASTATIN 20 MG TAB PO SCH (09:00)
[2022-10-07] MEDS ORDERED: VANCOMYCIN HCL 1,000 MG, VIAL MATE ADAPTER 1 EACH in NS 250 ML IV SCH (09:00)
[2022-10-07] MEDS ORDERED: lisinopriL 5 MG TAB PO SCH (09:00)
[2022-10-07] MEDS ORDERED: CETIRIZINE (ZyrTEC) 10 MG TAB PO SCH (09:00)
[2022-10-07] MEDS ORDERED: MAGNESIUM OXIDE 400MG TAB (MAG-OX) PO SCH (09:00)
[2022-10-07] MEDS ORDERED: METOPROLOL SUCC *XL* 12.5MG PER 1/2 TAB (TopROL *XL*) PO SCH (09:00)
[2022-10-07] MEDS ORDERED: ASPIRIN 81MG CHEW TABLET PO SCH (09:00)
[2022-10-07] MEDS ORDERED: CLOPIDOGREL 75 MG TAB PO SCH (09:00)
[2022-10-07 12:00] VITALS: BP 146/82
== END 2022-10-07 14:45 | disposition left against medical advice (07) | DRG 720 ==
LOC: EDBD 16:40 → M ED 16:40 → M ED INP 23:22
PROVIDERS: ADMIT Internal Medicine; ATTEND Internal Medicine Nephrology
DX: A41.01 Sepsis due to Methicillin susceptible Staphylococcus aureus (principal); E87.20 Acidosis, unspecified; I10 Essential (primary) hypertension; I25.10 Atherosclerotic heart disease of native coronary artery without angina pectoris; L03.116 Cellulitis of left lower limb; E78.5 Hyperlipidemia, unspecified; B18.2 Chronic viral hepatitis C; F17.200 Nicotine dependence, unspecified, uncomplicated; J44.9 Chronic obstructive pulmonary disease, unspecified; F14.10 Cocaine abuse, uncomplicated; R74.8 Abnormal levels of other serum enzymes; L02.411 Cutaneous abscess of right axilla; K21.9 Gastro-esophageal reflux disease without esophagitis; Z79.82 Long term (current) use of aspirin; Z79.02 Long term (current) use of antithrombotics/antiplatelets; Z79.899 Other long term (current) drug therapy; Z91.010 Allergy to peanuts; Z95.5 Presence of coronary angioplasty implant and graft

== ENCOUNTER 2022-10-18 23:17 | Inpatient (IN) | payer OTHER ==
[~2022-10-18] VITALS: Ht 170.2 cm; Wt 77.5 kg
[~2022-10-18 23:17] MED LIST changes: +ALBU8.5H INH; +ASPI-655 PO; +IBUP1TAB7 PO; +LEXA1TAB PO; +NITR4TASL SL
[2022-10-19] VITALS (26 sets, daily range): BP systolic 86–113; BP diastolic 55–68
[2022-10-19] MEDS ORDERED: NS 1,000 ML IV ONE ×3 (00:25→09:35)
[2022-10-19] MEDS ORDERED: ACETAMINOPHEN TAB 650MG DOSE (2X325MG) PO ONE (00:25)
[2022-10-19] MEDS ORDERED: NS 1,320 ML in IV 1 EA IV ONE (00:40)
[2022-10-19] MEDS ORDERED: PIPERACILLIN/TAZOBACTAM SOD 4.5 GM in D5W MINI-BAG PLUS 50 ML IV ONE (00:40)
[2022-10-19 00:42] LABS: CK-MB VALUE MASS < 1.0 NG/ML (<3.6)
[2022-10-19 00:43] LABS: ALBUMIN 3.2 G/DL (3.2-5.2); ALKALINE PHOSPHATASE 199 U/L (46-116); ALT/SGPT 46 U/L (7.0-40); AST/SGOT 138 U/L (<34); BILIRUBIN,TOTAL 1.8 MG/DL (0.3-1.2); BLOOD UREA NITROGEN 17 MG/DL (9-23); CALCIUM LEVEL 8.7 MG/DL (8.5-10.1); CARBON DIOXIDE LEVEL 21 MMOL/L (20-31); CHLORIDE LEVEL 104 MMOL/L (98-107); CPK CREATINE PHOSPHOKINASE 88 U/L (46-171); GLOMERULAR FILTRATION RATE > 60.0 (>56); GLUCOSE, FASTING 111 MG/DL (60-100); MB/CK RELATIVE INDEX 1.13 (< OR =4); POTASSIUM SERUM 4.4 MMOL/L (3.5-5.1); SODIUM LEVEL 136 MMOL/L (136-145)
[2022-10-19 00:49] LABS: HEMATOCRIT 42.9 % (42.0-52.0); HEMOGLOBIN 14.2 g/dl (13.5-17.5); MEAN CORPUSCULAR HEMOGLOBIN 29.8 pg (27.0-33.0); MEAN CORPUSCULAR HGB CONC 33.1 g/dl (32.0-36.5); MEAN CORPUSCULAR VOLUME 89.9 fl (80.0-96.0); PLATELET COUNT, AUTOMATED 311 10^3/uL (150-450); RED BLOOD COUNT 4.77 10^6/uL (4.30-6.10); WHITE BLOOD COUNT 3.2 10^3/uL (4.0-10.0)
[2022-10-19 01:18] LABS: INR 1.02; PROTHROMBIN TIME 13.6 SECONDS (12.5-14.5)
[2022-10-19 01:19] LABS: PARTIAL THROMBOPLASTIN TIME 25.5 SECONDS (24.8-34.2)
[2022-10-19 01:33] LABS: ATYPICAL LYMPH 2 % (0-5); BASOPHILS 1 % (0-1); EOSINOPHILS 1 % (0-3); LYMPHOCYTES 15 % (16-44); METAMYELOCYTES 1 % (0-0); MONOCYTES 1 % (0-5); NEUTROPHILS 70 % (28-66); PLATELET ESTIMATE NORMAL (NORMAL)
[2022-10-19] MEDS ORDERED: ACETAMINOPHEN TAB 650MG DOSE (2X325MG) PO PRN (03:45)
[2022-10-19] MEDS ORDERED: NS 1,000 ML IV SCH (03:45)
[2022-10-19] MEDS ORDERED: MORPHINE 2 MG/ML 1ML VIAL IV PRN (03:55)
[2022-10-19] MEDS ORDERED: NICOTINE 21MG/24HR 1 EA TRANSDERMAL TD PRN (04:05)
[2022-10-19 04:10] LABS: APPEARANCE, URINE CLEAR (CLEAR); BACTERIA, URINE AUTO NEGATIVE (NEGATIVE); BILIRUBIN, URINE AUTO NEGATIVE (NEGATIVE); BLOOD, URINE BLOOD NEGATIVE (NEGATIVE); COLOR, URINE YELLOW (YELLOW); GLUCOSE, URINE (UA) AUTO NEGATIVE (NEGATIVE); KETONE, URINE AUTO NEGATIVE (NEGATIVE); LEUKOCYTE ESTERASE, URINE AUTO NEGATIVE (NEGATIVE); NITRITE, URINE AUTO NEGATIVE (NEGATIVE); PROTEIN, URINE AUTO 1+ mg/dL (NEGATIVE); RBC, URINE AUTO 0 /HPF (0-3); SPECIFIC GRAVITY URINE AUTO 1.014 (1.002-1.035); SQUAMOUS EPITHELIAL CELL UR AU 0 /HPF (0-6); UROBILINOGEN, URINE AUTO 0.2 mg/dL (0.0-2.0); WBC, URINE AUTO 2 /HPF (0-3)
[2022-10-19] MEDS ORDERED: TRAZ-257 PO (05:09)
[2022-10-19] MEDS ORDERED: HOME MED LIST COMPLETE! XX SCH (05:10)
[2022-10-19] MEDS ORDERED: PATIENT COMMENT (05:11)
[2022-10-19] MEDS: VANCOMYCIN HCL 1,000 MG, VIAL MATE ADAPTER 1 EACH in NS 250 ML IV SCH ×2 (05:23→17:08)
[2022-10-19] MEDS ORDERED: ALBUTEROL 90 MCG/ACT 8GM HFA INHALER INH PRN (05:25)
[2022-10-19] MEDS ORDERED: FAMOTIDINE 20 MG TAB PO PRN (05:25)
[2022-10-19] MEDS ORDERED: VANCOMYCIN HCL 500 MG in D5W MINI-BAG PLUS 100 ML IV ONE (06:00)
[2022-10-19 07:00] LABS: HEMATOCRIT 37.7 % (42.0-52.0); HEMOGLOBIN 12.3 g/dl (13.5-17.5); MEAN CORPUSCULAR HEMOGLOBIN 29.9 pg (27.0-33.0); MEAN CORPUSCULAR HGB CONC 32.6 g/dl (32.0-36.5); MEAN CORPUSCULAR VOLUME 91.5 fl (80.0-96.0); PLATELET COUNT, AUTOMATED 222 10^3/uL (150-450); RED BLOOD COUNT 4.12 10^6/uL (4.30-6.10); WHITE BLOOD COUNT 13.2 10^3/uL (4.0-10.0)
[2022-10-19] MEDS: TIOTROPIUM INHALER/CAPSULE (SPIRIVA) INH SCH (07:03)
[2022-10-19 07:21] LABS: ALBUMIN 2.5 G/DL (3.2-5.2); ALKALINE PHOSPHATASE 166 U/L (46-116); ALT/SGPT 88 U/L (7.0-40); AST/SGOT 170 U/L (<34); BILIRUBIN,TOTAL 3.3 MG/DL (0.3-1.2); BLOOD UREA NITROGEN 21 MG/DL (9-23); CALCIUM LEVEL 7.7 MG/DL (8.5-10.1); CARBON DIOXIDE LEVEL 18 MMOL/L (20-31); CHLORIDE LEVEL 106 MMOL/L (98-107); CREATININE FOR GFR 1.23 MG/DL (0.70-1.30); GLOMERULAR FILTRATION RATE > 60.0 (>56); GLUCOSE, FASTING 144 MG/DL (60-100); MAGNESIUM LEVEL 1.5 MG/DL (1.8-2.4); POTASSIUM SERUM 4.3 MMOL/L (3.5-5.1); SODIUM LEVEL 136 MMOL/L (136-145); TOTAL PROTEIN 5.5 G/DL (5.7-8.2)
[2022-10-19] MEDS: PIPERACILLIN/TAZOBACTAM SOD 4.5 GM in D5W MINI-BAG PLUS 50 ML IV SCH ×3 (07:53→20:06)
[2022-10-19] MEDS: ASPIRIN 81MG CHEW TABLET PO SCH (08:43)
[2022-10-19] MEDS: CETIRIZINE (ZyrTEC) 10 MG TAB PO SCH (08:44)
[2022-10-19] MEDS: CLOPIDOGREL 75 MG TAB PO SCH (08:44)
[2022-10-19] MEDS: ATORVASTATIN 20 MG TAB PO SCH (08:44)
[2022-10-19] MEDS: ENOXAPARIN 40MG/0.4ML SYRINGE (J1650 PER 10MG) SC SCH (08:45)
[2022-10-19] MEDS: MAG SULF 1GM/100ML (MAG RUN) 1 GM in IV 1 EA IV SCH ×2 (08:46→11:15)
[2022-10-19] MEDS ORDERED: DOCUSATE SODIUM 100MG CAPSULE PO SCH (09:00)
[2022-10-19] MEDS: buPROPion 75 MG TAB PO SCH (11:15)
[2022-10-19] MEDS: NS 1,000 ML IV SCH ×2 (11:16→20:07)
[2022-10-19 18:06] LABS: BLOOD UREA NITROGEN 18 MG/DL (9-23); CARBON DIOXIDE LEVEL 22 MMOL/L (20-31); CHLORIDE LEVEL 109 MMOL/L (98-107); CREATININE FOR GFR 0.98 MG/DL (0.70-1.30); GLOMERULAR FILTRATION RATE > 60.0 (>56); GLUCOSE, FASTING 105 MG/DL (60-100); SODIUM LEVEL 138 MMOL/L (136-145)
[2022-10-19] MEDS: ESCITALOPRAM OXALATE 10 MG TAB (LEXAPRO) PO SCH (20:07)
[2022-10-20] VITALS (12 sets, daily range): BP systolic 82–127; BP diastolic 47–84
[2022-10-20] MEDS: PIPERACILLIN/TAZOBACTAM SOD 4.5 GM in D5W MINI-BAG PLUS 50 ML IV SCH ×4 (02:26→19:57)
[2022-10-20] MEDS: VANCOMYCIN HCL 1,000 MG, VIAL MATE ADAPTER 1 EACH in NS 250 ML IV SCH (05:23)
[2022-10-20 06:42] LABS: BASO # 0.1 10^3/uL (0.0-0.2); BASO % 0.3 % (0.0-1.0); EOS % 0.3 % (0.0-3.0); HEMATOCRIT 31.5 % (42.0-52.0); HEMOGLOBIN 10.6 g/dl (13.5-17.5); LYMPH # 1.5 10^3/uL (1.5-5.0); LYMPH % 9.7 % (24.0-44.0); MEAN CORPUSCULAR HEMOGLOBIN 30.4 pg (27.0-33.0); MEAN CORPUSCULAR HGB CONC 33.7 g/dl (32.0-36.5); MEAN CORPUSCULAR VOLUME 90.3 fl (80.0-96.0); MONO % 6.2 % (2.0-8.0); NEUTROPHILS # 12.1 10^3/uL (1.5-8.5); NEUTROPHILS % 77.2 % (36.0-66.0); PLATELET COUNT, AUTOMATED 205 10^3/uL (150-450); RED BLOOD COUNT 3.49 10^6/uL (4.30-6.10); WHITE BLOOD COUNT 15.6 10^3/uL (4.0-10.0)
[2022-10-20 07:05] LABS: ALBUMIN 2.5 G/DL (3.2-5.2); ALKALINE PHOSPHATASE 117 U/L (46-116); ALT/SGPT 65 U/L (7.0-40); AST/SGOT 70 U/L (<34); BILIRUBIN,TOTAL 1.4 MG/DL (0.3-1.2); BLOOD UREA NITROGEN 15 MG/DL (9-23); CALCIUM LEVEL 7.7 MG/DL (8.5-10.1); CARBON DIOXIDE LEVEL 23 MMOL/L (20-31); CHLORIDE LEVEL 112 MMOL/L (98-107); CREATININE FOR GFR 0.92 MG/DL (0.70-1.30); GLOMERULAR FILTRATION RATE > 60.0 (>56); GLUCOSE, FASTING 93 MG/DL (60-100); POTASSIUM SERUM 3.9 MMOL/L (3.5-5.1); SODIUM LEVEL 141 MMOL/L (136-145); TOTAL PROTEIN 5.4 G/DL (5.7-8.2)
[2022-10-20] MEDS: FLUTICASONE PROP 0.05% NASAL SPRAY 16 GM (FLONASE) NARES SCH (08:16)
[2022-10-20] MEDS: buPROPion 75 MG TAB PO SCH (08:16)
[2022-10-20] MEDS: ENOXAPARIN 40MG/0.4ML SYRINGE (J1650 PER 10MG) SC SCH (08:16)
[2022-10-20] MEDS: CETIRIZINE (ZyrTEC) 10 MG TAB PO SCH (08:17)
[2022-10-20] MEDS: ATORVASTATIN 20 MG TAB PO SCH (08:17)
[2022-10-20] MEDS: CLOPIDOGREL 75 MG TAB PO SCH (08:17)
[2022-10-20] MEDS: ASPIRIN 81MG CHEW TABLET PO SCH (08:17)
[2022-10-20] MEDS: MULTIVITAMINS/MINERALS THERAP 1 TAB PO SCH (08:17)
[2022-10-20] MEDS: TIOTROPIUM INHALER/CAPSULE (SPIRIVA) INH SCH (08:19)
[2022-10-20] MEDS ORDERED: NEOSPORIN OINT 0.9 GM PKT TOP ONE (13:50)
[2022-10-20] MEDS ORDERED: VANCOMYCIN HCL 750 MG, VIAL MATE ADAPTER 1 EACH in D5W 250 ML IV SCH (18:00)
[2022-10-20] MEDS: VANCOMYCIN HCL 1,000 MG, VIAL MATE ADAPTER 1 EACH in D5W 250 ML IV SCH (18:03)
[2022-10-20] MEDS: ESCITALOPRAM OXALATE 10 MG TAB (LEXAPRO) PO SCH (22:38)
[2022-10-21] MEDS: VANCOMYCIN HCL 1,000 MG, VIAL MATE ADAPTER 1 EACH in D5W 250 ML IV SCH (01:58)
[2022-10-21] MEDS: PIPERACILLIN/TAZOBACTAM SOD 4.5 GM in D5W MINI-BAG PLUS 50 ML IV SCH ×3 (01:58→14:37)
[2022-10-21 05:12] VITALS: BP 137/83
[2022-10-21 07:04] LABS: ALBUMIN 2.6 G/DL (3.2-5.2); ALKALINE PHOSPHATASE 144 U/L (46-116); ALT/SGPT 55 U/L (7.0-40); AST/SGOT 57 U/L (<34); BLOOD UREA NITROGEN 12 MG/DL (9-23); CALCIUM LEVEL 8.1 MG/DL (8.5-10.1); CARBON DIOXIDE LEVEL 20 MMOL/L (20-31); CHLORIDE LEVEL 110 MMOL/L (98-107); CREATININE FOR GFR 0.83 MG/DL (0.70-1.30); GLOMERULAR FILTRATION RATE > 60.0 (>56); GLUCOSE, FASTING 88 MG/DL (60-100); MAGNESIUM LEVEL 1.9 MG/DL (1.8-2.4); POTASSIUM SERUM 4.3 MMOL/L (3.5-5.1); SODIUM LEVEL 139 MMOL/L (136-145)
[2022-10-21] MEDS: TIOTROPIUM INHALER/CAPSULE (SPIRIVA) INH SCH (07:37)
[2022-10-21] MEDS: buPROPion 75 MG TAB PO SCH (08:54)
[2022-10-21] MEDS: CETIRIZINE (ZyrTEC) 10 MG TAB PO SCH (08:54)
[2022-10-21] MEDS: MULTIVITAMINS/MINERALS THERAP 1 TAB PO SCH (08:54)
[2022-10-21] MEDS: ASPIRIN 81MG CHEW TABLET PO SCH (08:54)
[2022-10-21] MEDS: CLOPIDOGREL 75 MG TAB PO SCH (08:54)
[2022-10-21] MEDS: ATORVASTATIN 20 MG TAB PO SCH (08:54)
[2022-10-21] MEDS: ENOXAPARIN 40MG/0.4ML SYRINGE (J1650 PER 10MG) SC SCH (08:55)
[2022-10-21] MEDS: FLUTICASONE PROP 0.05% NASAL SPRAY 16 GM (FLONASE) NARES SCH (08:56)
[2022-10-21 09:05] LABS: BASO # 0.1 10^3/uL (0.0-0.2); BASO % 0.5 % (0.0-1.0); EOS # 0.2 10^3/uL (0.0-0.5); EOS % 1.7 % (0.0-3.0); HEMATOCRIT 32.7 % (42.0-52.0); HEMOGLOBIN 10.9 g/dl (13.5-17.5); LYMPH # 1.3 10^3/uL (1.5-5.0); LYMPH % 11.4 % (24.0-44.0); MEAN CORPUSCULAR HEMOGLOBIN 29.9 pg (27.0-33.0); MEAN CORPUSCULAR HGB CONC 33.3 g/dl (32.0-36.5); MEAN CORPUSCULAR VOLUME 89.8 fl (80.0-96.0); MONO # 0.5 10^3/uL (0.0-0.8); MONO % 4.9 % (2.0-8.0); NEUTROPHILS # 8.6 10^3/uL (1.5-8.5); NEUTROPHILS % 78.3 % (36.0-66.0); PLATELET COUNT, AUTOMATED 225 10^3/uL (150-450); RED BLOOD COUNT 3.64 10^6/uL (4.30-6.10); WHITE BLOOD COUNT 10.9 10^3/uL (4.0-10.0)
[2022-10-21 09:54] LABS: HEPATITIS B SURFACE ANTIGEN NEGATIVE (NEGATIVE)
[2022-10-21] MEDS ORDERED: VANCOMYCIN HCL 1,000 MG, VIAL MATE ADAPTER 1 EACH in D5W 250 ML IV SCH (10:00)
[2022-10-21 10:07] LABS: HIV 1&2 SCREEN NEGATIVE (NEGATIVE)
[2022-10-21 10:16] LABS: HEPATITIS B CORE ANTIBODY IGM NEGATIVE (NEGATIVE)
[2022-10-21 11:02] LABS: HEPATITIS C VIRUS ABY INDEX > 11.0 INDEX (<0.8)
[2022-10-21] MEDS ORDERED: DOXY-444 PO (12:45)
[2022-10-21] MEDS ORDERED: AMOX875T2 PO (12:45)
== END 2022-10-21 16:04 | disposition home or self-care (01) | DRG 720 ==
LOC: M ED 23:17 → M ED INP 10-19 03:42 → ENRESERV 10-19 10:03 → M ICU 10-19 10:16 → M MSPAV 10-20 15:14
PROVIDERS: ADMIT Internal Medicine; ATTEND Family Medicine
PROC: 02HV33Z Insertion of Infusion Device into Superior Vena Cava, Percutaneous Approach (ICD-10-PCS; 2022-10-19)
PROC: B246ZZZ Ultrasonography of Right and Left Heart (ICD-10-PCS; principal; 2022-10-21)
DX: A41.9 Sepsis, unspecified organism (principal); R65.21 Severe sepsis with septic shock; N17.9 Acute kidney failure, unspecified; E87.20 Acidosis, unspecified; L03.90 Cellulitis, unspecified; I25.10 Atherosclerotic heart disease of native coronary artery without angina pectoris; Z95.5 Presence of coronary angioplasty implant and graft; B18.2 Chronic viral hepatitis C; J44.9 Chronic obstructive pulmonary disease, unspecified; K21.9 Gastro-esophageal reflux disease without esophagitis; I10 Essential (primary) hypertension; E78.5 Hyperlipidemia, unspecified; F15.90 Other stimulant use, unspecified, uncomplicated; F17.210 Nicotine dependence, cigarettes, uncomplicated; R74.01 Elevation of levels of liver transaminase levels; Z79.82 Long term (current) use of aspirin; Z79.899 Other long term (current) drug therapy; Z91.010 Allergy to peanuts; Z20.822 Contact with and (suspected) exposure to COVID-19; Z79.02 Long term (current) use of antithrombotics/antiplatelets; Z71.51 Drug abuse counseling and surveillance of drug abuser

== ENCOUNTER → 2022-11-18 | Outpatient (CLI) | payer OTHER ==
[~2022-11-18] MED LIST changes: +AMOX875T2 PO; +DOXY-444 PO; -DOXY100C81 PO; +DOXY100C82 PO; +OXYC1CAP PO; +PATIENT COMMENT; +PERC5TAB12 PO; +TRAZ-257 PO
== END ==
LOC: M SOG 09:41
PROVIDERS: ATTEND Physician Assistant
DX: S49.92XA Unspecified injury of left shoulder and upper arm, initial encounter (principal); X58.XXXA Exposure to other specified factors, initial encounter; Y99.9 Unspecified external cause status; Y92.9 Unspecified place or not applicable

== ENCOUNTER → 2022-11-22 | Outpatient (CLI) | payer OTHER ==
[2022-11-22 14:40] LABS: ALBUMIN 3.9 G/DL (3.2-5.2); BILIRUBIN,DIRECT 0.2 MG/DL (<0.4); BILIRUBIN,TOTAL 0.5 MG/DL (0.3-1.2); TOTAL PROTEIN 7.1 G/DL (5.7-8.2)
[2022-11-23 13:10] LABS: HEPATITIS C QUANTITATION HCV Not Detected IU/mL (.)
== END ==
LOC: M PLALAB 09:43
PROVIDERS: ATTEND Internal Medicine Infectious Disease
DX: B18.2 Chronic viral hepatitis C (principal)

== ENCOUNTER → 2022-11-23 | Outpatient (CLI) | payer OTHER ==
[2022-11-23 14:25] LABS: BASO % 0.5 % (0.0-1.0); EOS # 0.2 10^3/uL (0.0-0.5); EOS % 2.4 % (0.0-3.0); HEMATOCRIT 40.4 % (42.0-52.0); HEMOGLOBIN 13.8 g/dl (13.5-17.5); LYMPH # 1.9 10^3/uL (1.5-5.0); LYMPH % 23.4 % (24.0-44.0); MEAN CORPUSCULAR HEMOGLOBIN 30.1 pg (27.0-33.0); MEAN CORPUSCULAR HGB CONC 34.2 g/dl (32.0-36.5); MEAN CORPUSCULAR VOLUME 88.2 fl (80.0-96.0); MONO # 0.7 10^3/uL (0.0-0.8); MONO % 8.3 % (2.0-8.0); NEUTROPHILS # 5.4 10^3/uL (1.5-8.5); NEUTROPHILS % 64.6 % (36.0-66.0); PLATELET COUNT, AUTOMATED 278 10^3/uL (150-450); RED BLOOD COUNT 4.58 10^6/uL (4.30-6.10); WHITE BLOOD COUNT 8.3 10^3/uL (4.0-10.0)
[2022-11-23 14:55] LABS: ALBUMIN 3.9 G/DL (3.2-5.2); ALKALINE PHOSPHATASE 141 U/L (46-116); ALT/SGPT 15 U/L (7.0-40); AST/SGOT 17 U/L (<34); BILIRUBIN,TOTAL 0.6 MG/DL (0.3-1.2); BLOOD UREA NITROGEN 12 MG/DL (9-23); CARBON DIOXIDE LEVEL 25 MMOL/L (20-31); CHLORIDE LEVEL 105 MMOL/L (98-107); CREATININE FOR GFR 0.78 MG/DL (0.70-1.30); GLOMERULAR FILTRATION RATE > 60.0 (>56); GLUCOSE, FASTING 93 MG/DL (60-100); SODIUM LEVEL 137 MMOL/L (136-145); TOTAL PROTEIN 7.1 G/DL (5.7-8.2)
== END ==
LOC: M PLAIMG 11:06
PROVIDERS: ATTEND Family Medicine
DX: I50.22 Chronic systolic (congestive) heart failure (principal)

== ENCOUNTER 2022-11-25 06:06 | Day surgery (SDC) | payer OTHER ==
[~2022-11-25] VITALS: Ht 170.2 cm; Wt 73.5 kg
[~2022-11-25 06:06] MED LIST changes: -OXYC1CAP PO
[2022-11-25] MEDS ORDERED: LR 1,000 ML IV SCH (06:30)
[2022-11-25] MEDS ORDERED: MIDAZOLAM INJ 2MG/2ML VIAL As Ordered ONE (07:13)
[2022-11-25] MEDS ORDERED: fentaNYL 100 MCG/2 ML INJECTION As Ordered ONE ×2 (07:13→09:20)
[2022-11-25] MEDS ORDERED: ONDANSETRON 4MG 2ML VIAL As Ordered ONE (07:14)
[2022-11-25] MEDS ORDERED: propofoL 200 MG/20 ML VIAL As Ordered ONE (07:14)
[2022-11-25] MEDS ORDERED: ROCURONIUM BROMIDE 50MG/5ML VIAL As Ordered ONE (07:14)
[2022-11-25] MEDS ORDERED: LIDOCAINE 2% 100MG/5ML SDV (FOR ANES.) As Ordered ONE (07:14)
[2022-11-25] MEDS ORDERED: dexmedeTOMIDine (4MCG/ML)200MCG/50ML BTL (PRECEDEX) As Ordered ONE (07:27)
[2022-11-25] MEDS ORDERED: ACETAMINOPHEN 1000MG 100ML IV BAG As Ordered ONE (07:27)
[2022-11-25] MEDS ORDERED: ceFAZolin 2 GM/D5W 50 ML IV BAG As Ordered ONE (07:34)
[2022-11-25] MEDS ORDERED: ceFAZolin SOD 2 GM in IV 1 EA IV ONE (08:00)
[2022-11-25] MEDS ORDERED: KETOROLAC 60MG 2ML VIAL As Ordered ONE (08:17)
[2022-11-25] MEDS ORDERED: SUGAMMADEX SODIUM 500 MG/5 ML VIAL (BRIDION) As Ordered ONE (08:17)
[2022-11-25] MEDS ORDERED: PHENYLephrine 500MCG 5ML (100MCG/ML) SYRINGE As Ordered ONE ×2 (08:52→08:55)
[2022-11-25] MEDS ORDERED: ePHEDrine SULFATE 25 MG/5 ML(5MG/ML) SYRINGE As Ordered ONE (08:52)
[2022-11-25] MEDS ORDERED: HYDROMORPHONE HCL 0.5 MG/ 0.5 ML SYRINGE IV PRN (09:25)
[2022-11-25] MEDS ORDERED: oxyCODONE 5MG TAB PO PRN (09:25)
[2022-11-25] MEDS ORDERED: fentaNYL 100 MCG/2 ML INJECTION IV PRN (09:25)
[2022-11-25] MEDS ORDERED: ONDANSETRON 4MG 2ML VIAL IV PRN (09:25)
[2022-11-25 12:55] VITALS: BP 137/92; TEMP 97.6; O2SAT 95
[2022-11-25] MEDS ORDERED: OXYC1CAP PO (12:55)
== END 2022-11-25 13:55 | disposition home or self-care (01) ==
LOC: M SDC 06:06
PROVIDERS: ATTEND Orthopaedic Surgery
DX: S43.122A Dislocation of left acromioclavicular joint, 100%-200% displacement, initial encounter (principal); V13.4XXA Pedal cycle driver injured in collision with car, pick-up truck or van in traffic accident, initial encounter; Y92.410 Unspecified street and highway as the place of occurrence of the external cause; I25.10 Atherosclerotic heart disease of native coronary artery without angina pectoris; I25.2 Old myocardial infarction; Z95.5 Presence of coronary angioplasty implant and graft; E78.00 Pure hypercholesterolemia, unspecified; I10 Essential (primary) hypertension; B18.2 Chronic viral hepatitis C; K44.9 Diaphragmatic hernia without obstruction or gangrene; F41.9 Anxiety disorder, unspecified; F32.A Depression, unspecified; F43.10 Post-traumatic stress disorder, unspecified; R56.9 Unspecified convulsions; J44.9 Chronic obstructive pulmonary disease, unspecified; Z86.14 Personal history of Methicillin resistant Staphylococcus aureus infection; F17.210 Nicotine dependence, cigarettes, uncomplicated; Z91.010 Allergy to peanuts; Z79.899 Other long term (current) drug therapy; Z79.82 Long term (current) use of aspirin; Z79.02 Long term (current) use of antithrombotics/antiplatelets; Z79.891 Long term (current) use of opiate analgesic
CPT/HCPCS: 23550; 76000; C1713; J0131; J0690; J1100; J1885; J2250; J2370; J2405; J3010

== ENCOUNTER → 2022-12-10 | Outpatient (CLI) | payer OTHER ==
[~2022-12-10] MED LIST changes: +OXYC1CAP PO
== END ==
LOC: M SOG 08:37
PROVIDERS: ATTEND Orthopaedic Surgery
DX: S43.132A Dislocation of left acromioclavicular joint, greater than 200% displacement, initial encounter (principal); W18.30XA Fall on same level, unspecified, initial encounter; Y92.009 Unspecified place in unspecified non-institutional (private) residence as the place of occurrence of the external cause

== ENCOUNTER → 2023-01-07 | Outpatient (CLI) | payer OTHER | LOC: M SOG 09:55 | PROVIDERS: ATTEND Orthopaedic Surgery | DX: S43.132A Dislocation of left acromioclavicular joint, greater than 200% displacement, initial encounter (principal); X58.XXXA Exposure to other specified factors, initial encounter; Y92.9 Unspecified place or not applicable; Y93.9 Activity, unspecified; Y99.9 Unspecified external cause status ==

== ENCOUNTER → 2023-01-17 | Emergency (ER) | payer OTHER ==
[~2023-01-17] VITALS: Ht 167.6 cm; Wt 75.0 kg
[~2023-01-17] MED LIST changes: +ACETAMINOPHEN 325 MG TAB PO ONE; +NS 1,000 ML IV ONE
[2023-01-17 14:24] VITALS: BP 137/71; TEMP 101.1; O2SAT 94
[2023-01-17 18:13] LABS: RSV AMPLIFICATION NEGATIVE (NEGATIVE)
== END | disposition left against medical advice (07) ==
LOC: M ED 13:52
DX: R50.9 Fever, unspecified (principal); I11.9 Hypertensive heart disease without heart failure; K21.9 Gastro-esophageal reflux disease without esophagitis; Z87.442 Personal history of urinary calculi; B19.20 Unspecified viral hepatitis C without hepatic coma; I25.10 Atherosclerotic heart disease of native coronary artery without angina pectoris; I25.2 Old myocardial infarction; E78.5 Hyperlipidemia, unspecified; J44.9 Chronic obstructive pulmonary disease, unspecified; Z95.5 Presence of coronary angioplasty implant and graft; F19.10 Other psychoactive substance abuse, uncomplicated; Z91.010 Allergy to peanuts; Z79.899 Other long term (current) drug therapy; Z79.82 Long term (current) use of aspirin; Z79.51 Long term (current) use of inhaled steroids

== ENCOUNTER 2023-02-02 12:50 | Outpatient (RCR) | payer OTHER ==
[~2023-02-02 12:50] MED LIST changes: -ACETAMINOPHEN 325 MG TAB PO ONE; -NS 1,000 ML IV ONE
== END 2023-02-03 ==
LOC: M PT 12:50
PROVIDERS: ATTEND Orthopaedic Surgery
DX: S43.102A Unspecified dislocation of left acromioclavicular joint, initial encounter (principal)

== ENCOUNTER → 2023-02-16 | Outpatient (CLI) | payer OTHER | LOC: M SOG 08:03 | PROVIDERS: ATTEND Orthopaedic Surgery | DX: S43.102A Unspecified dislocation of left acromioclavicular joint, initial encounter (principal); Y93.9 Activity, unspecified; Y92.9 Unspecified place or not applicable ==

== ENCOUNTER → 2023-02-16 | Outpatient (CLI) | payer OTHER ==
[2023-02-16 16:09] LABS: BASO # 0.1 10^3/uL (0.0-0.2); BASO % 0.7 % (0.0-1.0); EOS # 0.5 10^3/uL (0.0-0.5); EOS % 5.5 % (0.0-3.0); HEMATOCRIT 48.7 % (42.0-52.0); HEMOGLOBIN 15.9 g/dl (13.5-17.5); LYMPH # 2.9 10^3/uL (1.5-5.0); MEAN CORPUSCULAR HEMOGLOBIN 29.3 pg (27.0-33.0); MEAN CORPUSCULAR HGB CONC 32.6 g/dl (32.0-36.5); MEAN CORPUSCULAR VOLUME 89.7 fl (80.0-96.0); MONO # 0.6 10^3/uL (0.0-0.8); MONO % 6.9 % (2.0-8.0); NEUTROPHILS # 4.1 10^3/uL (1.5-8.5); NEUTROPHILS % 50.7 % (36.0-66.0); PLATELET COUNT, AUTOMATED 195 10^3/uL (150-450); RED BLOOD COUNT 5.43 10^6/uL (4.30-6.10); WHITE BLOOD COUNT 8.1 10^3/uL (4.0-10.0)
[2023-02-16 16:16] LABS: ALBUMIN 4.2 G/DL (3.2-5.2); ALKALINE PHOSPHATASE 166 U/L (46-116); ALT/SGPT 18 U/L (7.0-40); AST/SGOT 26 U/L (<34); BILIRUBIN,TOTAL 0.2 MG/DL (0.3-1.2); BLOOD UREA NITROGEN 12 MG/DL (9-23); CALCIUM LEVEL 9.9 MG/DL (8.5-10.1); CARBON DIOXIDE LEVEL 22 MMOL/L (20-31); CHLORIDE LEVEL 105 MMOL/L (98-107); CHOLESTEROL LEVEL 189 MG/DL (<200); CHOLESTEROL RISK RATIO 3.84 (<5); CREATININE FOR GFR 0.61 MG/DL (0.70-1.30); GLOMERULAR FILTRATION RATE > 60.0 (>56); GLUCOSE, FASTING 95 MG/DL (60-100); HDL CHOLESTEROL 49.1 MG/DL (>40); LDL CHOLESTEROL 62.9 MG/DL (<100); NON-HDL-C 139.9 MG/DL; POTASSIUM SERUM 4.7 MMOL/L (3.5-5.1); SODIUM LEVEL 141 MMOL/L (136-145); TOTAL PROTEIN 7.7 G/DL (5.7-8.2); TRIGLYCERIDES LEVEL 385 MG/DL (<150)
== END ==
LOC: M PLALAB 12:44
PROVIDERS: ATTEND Physician Assistant
DX: E78.5 Hyperlipidemia, unspecified (principal); I10 Essential (primary) hypertension; Z12.5 Encounter for screening for malignant neoplasm of prostate

== ENCOUNTER → 2023-04-07 | Outpatient (CLI) | payer OTHER ==
[~2023-04-07] MED LIST changes: +CHLO125TA PO; +CLIN1GEL22 TOP; +CLOP75TA2 PO; +FLUT15.820; +IBUP80TA PO; +NICO1DIS9 TOP; +PANT40TA29 PO
== END ==
LOC: M RAD 16:56
PROVIDERS: ATTEND Orthopaedic Surgery
DX: S43.102A Unspecified dislocation of left acromioclavicular joint, initial encounter (principal); X58.XXXA Exposure to other specified factors, initial encounter; Y92.9 Unspecified place or not applicable; Y93.9 Activity, unspecified; Y99.9 Unspecified external cause status

== ENCOUNTER → 2023-04-08 | Outpatient (CLI) | payer OTHER ==
[2023-04-08 17:29] LABS: BASO % 0.3 % (0.0-1.0); EOS # 0.4 10^3/uL (0.0-0.5); EOS % 5.1 % (0.0-3.0); HEMOGLOBIN 14.9 g/dl (13.5-17.5); LYMPH # 2.2 10^3/uL (1.5-5.0); LYMPH % 27.7 % (24.0-44.0); MEAN CORPUSCULAR HEMOGLOBIN 28.9 pg (27.0-33.0); MEAN CORPUSCULAR HGB CONC 33.1 g/dl (32.0-36.5); MEAN CORPUSCULAR VOLUME 87.2 fl (80.0-96.0); MONO # 0.5 10^3/uL (0.0-0.8); MONO % 6.8 % (2.0-8.0); NEUTROPHILS # 4.7 10^3/uL (1.5-8.5); NEUTROPHILS % 59.6 % (36.0-66.0); PLATELET COUNT, AUTOMATED 355 10^3/uL (150-450); RED BLOOD COUNT 5.16 10^6/uL (4.30-6.10); WHITE BLOOD COUNT 7.8 10^3/uL (4.0-10.0)
[2023-04-08 17:39] LABS: INR 0.99; PROTHROMBIN TIME 12.8 SECONDS (12.5-14.5)
[2023-04-08 17:40] LABS: PARTIAL THROMBOPLASTIN TIME 28.7 SECONDS (24.8-34.2)
[2023-04-08 17:59] LABS: ALBUMIN 3.9 G/DL (3.2-5.2); ALKALINE PHOSPHATASE 147 U/L (46-116); ALT/SGPT 16 U/L (7.0-40); AST/SGOT 21 U/L (<34); BILIRUBIN,TOTAL 0.4 MG/DL (0.3-1.2); BLOOD UREA NITROGEN 15 MG/DL (9-23); CALCIUM LEVEL 9.6 MG/DL (8.5-10.1); CARBON DIOXIDE LEVEL 25 MMOL/L (20-31); CHLORIDE LEVEL 103 MMOL/L (98-107); CREATININE FOR GFR 0.69 MG/DL (0.70-1.30); GLOMERULAR FILTRATION RATE > 60.0 (>56); GLUCOSE, FASTING 98 MG/DL (60-100); POTASSIUM SERUM 4.2 MMOL/L (3.5-5.1); SODIUM LEVEL 136 MMOL/L (136-145); TOTAL PROTEIN 7.2 G/DL (5.7-8.2)
== END ==
LOC: M PLALAB 15:29
PROVIDERS: ATTEND Family Medicine
DX: I10 Essential (primary) hypertension (principal)

== ENCOUNTER → 2023-04-08 | Outpatient (CLI) | payer OTHER ==
[2023-04-08 17:54] LABS: ALBUMIN 3.7 G/DL (3.2-5.2); ALKALINE PHOSPHATASE 141 U/L (46-116); ALT/SGPT 16 U/L (7.0-40); AST/SGOT 24 U/L (<34); BILIRUBIN,TOTAL 0.4 MG/DL (0.3-1.2); BLOOD UREA NITROGEN 16 MG/DL (9-23); CALCIUM LEVEL 9.5 MG/DL (8.5-10.1); CARBON DIOXIDE LEVEL 24 MMOL/L (20-31); CHLORIDE LEVEL 105 MMOL/L (98-107); CREATININE FOR GFR 0.69 MG/DL (0.70-1.30); GLOMERULAR FILTRATION RATE > 60.0 (>56); GLUCOSE, FASTING 101 MG/DL (60-100); POTASSIUM SERUM 4.3 MMOL/L (3.5-5.1); SODIUM LEVEL 138 MMOL/L (136-145)
[2023-04-12 09:10] LABS: HEPATITIS C QUANTITATION HCV Not Detected IU/mL (.)
== END ==
LOC: M PLALAB 15:33
PROVIDERS: ATTEND Internal Medicine Infectious Disease
DX: B18.2 Chronic viral hepatitis C (principal)

== ENCOUNTER → 2023-04-15 | Day surgery (SDC) | payer OTHER ==
[~2023-04-15] VITALS: Ht 170.2 cm; Wt 73.7 kg
[~2023-04-15] MED LIST changes: +LIDOCAINE 2% 100MG/5ML SDV (FOR ANES.) As Ordered ONE; +NS 1,000 ML IV ONE; +propofoL 200 MG/20 ML VIAL As Ordered ONE
[2023-04-15 12:24] VITALS: BP 115/68; O2SAT 95
== END | disposition home or self-care (01) ==
LOC: M OPP 09:00
PROVIDERS: ATTEND Internal Medicine Gastroenterology
DX: Z12.11 Encounter for screening for malignant neoplasm of colon (principal); Z86.010 Personal history of colon polyps; F17.200 Nicotine dependence, unspecified, uncomplicated; I25.9 Chronic ischemic heart disease, unspecified; Z86.74 Personal history of sudden cardiac arrest; Z95.5 Presence of coronary angioplasty implant and graft; Z79.01 Long term (current) use of anticoagulants; Z79.02 Long term (current) use of antithrombotics/antiplatelets; Z79.1 Long term (current) use of non-steroidal anti-inflammatories (NSAID); Z79.2 Long term (current) use of antibiotics; Z79.51 Long term (current) use of inhaled steroids; Z79.52 Long term (current) use of systemic steroids; Z79.82 Long term (current) use of aspirin; Z79.899 Other long term (current) drug therapy

== ENCOUNTER 2023-04-22 14:58 | Observation (INO) | payer OTHER ==
[~2023-04-22] VITALS: Ht 170.2 cm; Wt 73.5 kg
[~2023-04-22 14:58] MED LIST changes: -LIDOCAINE 2% 100MG/5ML SDV (FOR ANES.) As Ordered ONE; -NS 1,000 ML IV ONE; -propofoL 200 MG/20 ML VIAL As Ordered ONE
[2023-04-22] MEDS ORDERED: LR 1,000 ML IV SCH ×2 (15:30→21:05)
[2023-04-22] MEDS ORDERED: TRANEXAMIC ACID 100 MG/ML 10ML VIAL As Ordered ONE (16:54)
[2023-04-22] MEDS ORDERED: VANCOMYCIN 1000MG/20ML VIAL As Ordered ONE (16:54)
[2023-04-22] MEDS ORDERED: VANCOMYCIN HCL 1,000 MG, VIAL MATE ADAPTER 1 EACH in D5W 250 ML IV ONE (17:10)
[2023-04-22] MEDS ORDERED: TRANEXAMIC ACID INJection 1,000 MG in NS 100 ML IV ONE (17:15)
[2023-04-22] MEDS ORDERED: MIDAZOLAM INJ 2MG/2ML VIAL As Ordered ONE (18:22)
[2023-04-22] MEDS ORDERED: KETOROLAC 60MG 2ML VIAL As Ordered ONE (18:22)
[2023-04-22] MEDS ORDERED: PHENYLephrine 500MCG 5ML (100MCG/ML) SYRINGE As Ordered ONE (18:22)
[2023-04-22] MEDS ORDERED: ACETAMINOPHEN 1000MG 100ML IV BAG As Ordered ONE (18:22)
[2023-04-22] MEDS ORDERED: SUGAMMADEX SODIUM 500 MG/5 ML VIAL (BRIDION) As Ordered ONE (18:22)
[2023-04-22] MEDS ORDERED: fentaNYL 250 MCG/5 ML INJECTION As Ordered ONE (18:22)
[2023-04-22] MEDS ORDERED: LIDOCAINE 2% 100MG/5ML SDV (FOR ANES.) As Ordered ONE (18:22)
[2023-04-22] MEDS ORDERED: METOCLOPRAMIDE INJ 10MG/2ML VIAL As Ordered ONE (18:22)
[2023-04-22] MEDS ORDERED: DESFLURANE 240 ML INHALANT As Ordered ONE (18:22)
[2023-04-22] MEDS ORDERED: dexmedeTOMIDine (4MCG/ML)200MCG/50ML BTL (PRECEDEX) As Ordered ONE (18:22)
[2023-04-22] MEDS ORDERED: ONDANSETRON 4MG 2ML VIAL As Ordered ONE (18:22)
[2023-04-22] MEDS ORDERED: propofoL 200 MG/20 ML VIAL As Ordered ONE (18:22)
[2023-04-22] MEDS ORDERED: ROCURONIUM BROMIDE 50MG/5ML VIAL As Ordered ONE (18:22)
[2023-04-22] MEDS ORDERED: HYDROmorphone HCL 2MG/ML 1ML VIAL As Ordered ONE (19:18)
[2023-04-22] MEDS ORDERED: ENOXAPARIN 40MG/0.4ML SYRINGE (J1650 PER 10MG) SC SCH (21:00)
[2023-04-22] MEDS ORDERED: oxyCODONE 5MG TAB PO PRN (21:05)
[2023-04-22] MEDS ORDERED: HYDROMORPHONE HCL 0.5 MG/ 0.5 ML SYRINGE IV PRN (21:05)
[2023-04-22] MEDS ORDERED: METOCLOPRAMIDE INJ 10MG/2ML VIAL IV PRN (21:05)
[2023-04-22] MEDS ORDERED: ONDANSETRON 4MG 2ML VIAL IV PRN (21:05)
[2023-04-22] MEDS ORDERED: fentaNYL 100 MCG/2 ML INJECTION IV PRN (21:05)
[2023-04-22 21:50] VITALS: BP 155/76; TEMP 97.3; O2SAT 94
[2023-04-22] MEDS: traZODone 100 MG TAB PO SCH (21:50)
[2023-04-22] MEDS: ESCITALOPRAM OXALATE 10 MG TAB (LEXAPRO) PO SCH (21:50)
[2023-04-22 22:30] VITALS: BP 152/74; TEMP 96.6; O2SAT 93
[2023-04-22] MEDS ORDERED: ACETAMINOPHEN TAB 650MG DOSE (2X325MG) PO PRN (22:35)
[2023-04-22] MEDS ORDERED: NITROGLYCERIN 0.4MG SUBL TABLET SL PRN (22:45)
[2023-04-22] MEDS ORDERED: ALBUTEROL 90 MCG/ACT 8GM HFA INHALER INH PRN (22:45)
[2023-04-22 23:07] LABS: HEMATOCRIT 40.9 % (42.0-52.0); HEMOGLOBIN 13.8 g/dl (13.5-17.5); MEAN CORPUSCULAR HEMOGLOBIN 29.2 pg (27.0-33.0); MEAN CORPUSCULAR HGB CONC 33.7 g/dl (32.0-36.5); MEAN CORPUSCULAR VOLUME 86.7 fl (80.0-96.0); PLATELET COUNT, AUTOMATED 293 10^3/uL (150-450); RED BLOOD COUNT 4.72 10^6/uL (4.30-6.10); WHITE BLOOD COUNT 9.3 10^3/uL (4.0-10.0)
[2023-04-22 23:30] VITALS: BP 168/68; TEMP 96.6; O2SAT 94
[2023-04-22 23:45] LABS: ALBUMIN 3.4 G/DL (3.2-5.2); ALKALINE PHOSPHATASE 157 U/L (46-116); ALT/SGPT 18 U/L (7.0-40); AST/SGOT 21 U/L (<34); BILIRUBIN,TOTAL 0.4 MG/DL (0.3-1.2); BLOOD UREA NITROGEN 12 MG/DL (9-23); CALCIUM LEVEL 8.9 MG/DL (8.5-10.1); CARBON DIOXIDE LEVEL 26 MMOL/L (20-31); CHLORIDE LEVEL 105 MMOL/L (98-107); CREATININE FOR GFR 0.71 MG/DL (0.70-1.30); GLOMERULAR FILTRATION RATE > 60.0 (>56); GLUCOSE, FASTING 121 MG/DL (60-100); POTASSIUM SERUM 4.8 MMOL/L (3.5-5.1); SODIUM LEVEL 138 MMOL/L (136-145); TOTAL PROTEIN 6.6 G/DL (5.7-8.2)
[2023-04-23] VITALS (8 sets, daily range): BP systolic 118–183; BP diastolic 67–88; TEMP 96.8–98.1; O2SAT 94–98
[2023-04-23] MEDS ORDERED: PERCOCET 5MG/325MG TAB PO PRN (04:00)
[2023-04-23 07:02] LABS: HEMATOCRIT 42.3 % (42.0-52.0); HEMOGLOBIN 14.8 g/dl (13.5-17.5); MEAN CORPUSCULAR HEMOGLOBIN 30.1 pg (27.0-33.0); MEAN CORPUSCULAR VOLUME 86.2 fl (80.0-96.0); PLATELET COUNT, AUTOMATED 366 10^3/uL (150-450); RED BLOOD COUNT 4.91 10^6/uL (4.30-6.10); WHITE BLOOD COUNT 8.6 10^3/uL (4.0-10.0)
[2023-04-23 07:29] LABS: ALBUMIN 3.1 G/DL (3.2-5.2); ALKALINE PHOSPHATASE 153 U/L (46-116); ALT/SGPT 10 U/L (7.0-40); AST/SGOT 16 U/L (<34); BILIRUBIN,TOTAL 0.4 MG/DL (0.3-1.2); BLOOD UREA NITROGEN 14 MG/DL (9-23); CARBON DIOXIDE LEVEL 24 MMOL/L (20-31); CHLORIDE LEVEL 103 MMOL/L (98-107); GLOMERULAR FILTRATION RATE > 60.0 (>56); GLUCOSE, FASTING 179 MG/DL (60-100); POTASSIUM SERUM 4.5 MMOL/L (3.5-5.1); SODIUM LEVEL 135 MMOL/L (136-145); TOTAL PROTEIN 6.4 G/DL (5.7-8.2)
[2023-04-23] MEDS ORDERED: TIOTROPIUM INHALER/CAPSULE (SPIRIVA) INH SCH (08:00)
[2023-04-23] MEDS ORDERED: PANTOPRAZOLE 40MG TAB (PROTONIX) PO SCH (09:00)
[2023-04-23] MEDS ORDERED: ASPIRIN 81MG CHEW TABLET PO SCH (09:00)
[2023-04-23] MEDS ORDERED: ATORVASTATIN 20 MG TAB PO SCH (09:00)
[2023-04-23] MEDS ORDERED: lisinopriL 5 MG TAB PO SCH (09:00)
[2023-04-23] MEDS ORDERED: CLOPIDOGREL 75 MG TAB PO SCH (09:00)
[2023-04-23] MEDS ORDERED: CETIRIZINE (ZyrTEC) 10 MG TAB PO SCH (09:00)
[2023-04-23] MEDS ORDERED: CHLORTHALIDONE 25 MG TAB PO SCH (09:00)
[2023-04-23] MEDS ORDERED: buPROPion 75 MG TAB PO SCH (09:00)
[2023-04-23] MEDS ORDERED: METOPROLOL SUCC *XL* 12.5MG PER 1/2 TAB (TopROL *XL*) PO SCH (09:00)
[2023-04-23] MEDS: VANCOMYCIN HCL 1,000 MG, VIAL MATE ADAPTER 1 EACH in D5W 250 ML IV SCH ×2 (09:33→20:02)
[2023-04-23] MEDS ORDERED: PERCOCET PO (09:47)
[2023-04-23] MEDS: ESCITALOPRAM OXALATE 10 MG TAB (LEXAPRO) PO SCH (20:01)
[2023-04-23] MEDS: traZODone 100 MG TAB PO SCH (20:02)
[2023-04-24] MEDS ORDERED: CLIN150C17 PO (17:38)
== END 2023-04-23 23:25 | disposition home or self-care (01) ==
LOC: M SDC 14:58 → ENRESERV 20:12 → M MS5PR 21:50
PROVIDERS: ADMIT Student in an Organized Health Care Education/Training Program; ATTEND Student in an Organized Health Care Education/Training Program
DX: M24.412 Recurrent dislocation, left shoulder (principal); S43.82XD Sprain of other specified parts of left shoulder girdle, subsequent encounter; V00-Y99 External causes of morbidity; Y92.410 Unspecified street and highway as the place of occurrence of the external cause; Z86.14 Personal history of Methicillin resistant Staphylococcus aureus infection; I10 Essential (primary) hypertension; I25.10 Atherosclerotic heart disease of native coronary artery without angina pectoris; I25.2 Old myocardial infarction; Z95.5 Presence of coronary angioplasty implant and graft; E78.9 Disorder of lipoprotein metabolism, unspecified; F39 Unspecified mood [affective] disorder; F43.10 Post-traumatic stress disorder, unspecified; F16.10 Hallucinogen abuse, uncomplicated; F17.210 Nicotine dependence, cigarettes, uncomplicated; Z91.010 Allergy to peanuts; Z79.899 Other long term (current) drug therapy; Z79.82 Long term (current) use of aspirin; Z79.02 Long term (current) use of antithrombotics/antiplatelets
CPT/HCPCS: 20680; 23552; 36415; 73020; 76000; 80053; 85027; 94640; 96374; 96376; 97161; 97530; C1713; C1762; C9290; J0131; J0665; J1100; J1170; J1885; J2250; J2371; J2405; J2765; J3010; J3370

== ENCOUNTER → 2023-05-03 | Outpatient (CLI) | payer OTHER ==
[~2023-05-03] MED LIST changes: +CLIN150C17 PO; +PERCOCET PO
== END ==
LOC: M SOG 07:54
PROVIDERS: ATTEND Student in an Organized Health Care Education/Training Program
DX: M25.512 Pain in left shoulder (principal)

== ENCOUNTER → 2023-06-29 | Outpatient (CLI) | payer OTHER | LOC: M SOG 07:50 | PROVIDERS: ATTEND Physician Assistant | DX: S43.102D Unspecified dislocation of left acromioclavicular joint, subsequent encounter (principal) ==

== ENCOUNTER → 2023-08-25 | Outpatient (CLI) | payer OTHER ==
[~2023-08-25] MED LIST changes: +ASPI81CH48 PO; +AZEL0.055 NARES; +LISI10TA22 PO; +MUPI2OI EXT; +SPIR-10 PO; +TREL1AER INH
== END ==
LOC: M SOG 08:49
PROVIDERS: ATTEND Physician Assistant
DX: S43.102D Unspecified dislocation of left acromioclavicular joint, subsequent encounter (principal)

== ENCOUNTER → 2023-08-25 | Outpatient (CLI) | payer OTHER ==
[~2023-08-25] MED LIST changes: -ASPI81CH48 PO; -AZEL0.055 NARES; -LISI10TA22 PO; -MUPI2OI EXT; -SPIR-10 PO; -TREL1AER INH
== END ==
LOC: M SOG 07:49
PROVIDERS: ATTEND Physician Assistant
DX: S43.102D Unspecified dislocation of left acromioclavicular joint, subsequent encounter (principal); Y93.9 Activity, unspecified; Y92.9 Unspecified place or not applicable

== ENCOUNTER → 2023-09-08 | Outpatient (CLI) | payer OTHER ==
[~2023-09-08] MED LIST changes: +ASPI81CH48 PO; +AZEL0.055 NARES; +LISI10TA22 PO; +MUPI2OI EXT; -OXYC1CAP PO; +OXYC1CAP2 PO; +SPIR-10 PO; +TREL1AER INH
[2023-09-08 14:07] LABS: BASO % 0.3 % (0.0-1.0); EOS # 0.2 10^3/uL (0.0-0.5); EOS % 2.4 % (0.0-3.0); HEMATOCRIT 46.7 % (42.0-52.0); HEMOGLOBIN 15.4 g/dl (13.5-17.5); LYMPH # 1.7 10^3/uL (1.5-5.0); LYMPH % 21.3 % (24.0-44.0); MEAN CORPUSCULAR HEMOGLOBIN 29.4 pg (27.0-33.0); MEAN CORPUSCULAR VOLUME 89.3 fl (80.0-96.0); MONO # 0.8 10^3/uL (0.0-0.8); MONO % 10.5 % (2.0-8.0); NEUTROPHILS # 5.1 10^3/uL (1.5-8.5); NEUTROPHILS % 64.9 % (36.0-66.0); PLATELET COUNT, AUTOMATED 311 10^3/uL (150-450); RED BLOOD COUNT 5.23 10^6/uL (4.30-6.10); WHITE BLOOD COUNT 7.9 10^3/uL (4.0-10.0)
[2023-09-08 14:30] LABS: ALBUMIN 3.8 G/DL (3.2-5.2); ALKALINE PHOSPHATASE 181 U/L (46-116); ALT/SGPT 17 U/L (7.0-40); AST/SGOT 23 U/L (<34); BILIRUBIN,TOTAL 0.5 MG/DL (0.3-1.2); BLOOD UREA NITROGEN 16 MG/DL (9-23); CALCIUM LEVEL 9.5 MG/DL (8.5-10.1); CARBON DIOXIDE LEVEL 25 MMOL/L (20-31); CHLORIDE LEVEL 105 MMOL/L (98-107); CREATININE FOR GFR 0.69 MG/DL (0.70-1.30); GLOMERULAR FILTRATION RATE > 60.0 (>56); GLUCOSE, FASTING 90 MG/DL (60-100); POTASSIUM SERUM 4.1 MMOL/L (3.5-5.1); SODIUM LEVEL 136 MMOL/L (136-145)
== END ==
LOC: M PLALAB 10:07
PROVIDERS: ATTEND Family Medicine
DX: Z01.810 Encounter for preprocedural cardiovascular examination (principal)

== ENCOUNTER 2023-09-15 14:34 | Day surgery (SDC) | payer OTHER ==
[~2023-09-15] VITALS: Ht 170.2 cm; Wt 74.4 kg
[2023-09-15] MEDS ORDERED: LR 1,000 ML IV SCH (14:35)
[2023-09-15] MEDS ORDERED: LIDOCAINE 2% 100MG/5ML SDV (FOR ANES.) As Ordered ONE (15:10)
[2023-09-15] MEDS ORDERED: SUGAMMADEX SODIUM 500 MG/5 ML VIAL (BRIDION) As Ordered ONE (15:10)
[2023-09-15] MEDS ORDERED: propofoL 200 MG/20 ML VIAL As Ordered ONE (15:10)
[2023-09-15] MEDS ORDERED: ACETAMINOPHEN 1000MG 100ML IV BAG As Ordered ONE (15:10)
[2023-09-15] MEDS ORDERED: ROCURONIUM BROMIDE 50MG/5ML VIAL As Ordered ONE (15:10)
[2023-09-15] MEDS ORDERED: KETOROLAC 60MG 2ML VIAL As Ordered ONE (15:11)
[2023-09-15] MEDS ORDERED: ONDANSETRON 4MG 2ML VIAL As Ordered ONE (15:11)
[2023-09-15] MEDS ORDERED: VANCOMYCIN HCL 1,000 MG, VIAL MATE ADAPTER 1 EACH in D5W 250 ML IV ONE (16:10)
[2023-09-15] MEDS: TRANEXAMIC ACID 100 MG/ML 10ML VIAL IV ONE (16:15)
[2023-09-15] MEDS ORDERED: HYDROmorphone HCL 2MG/ML 1ML VIAL As Ordered ONE (16:17)
[2023-09-15] MEDS: VANCOMYCIN 500MG/10ML VIAL As Ordered ONE (16:18)
[2023-09-15] MEDS: VANCOMYCIN 1000MG/20ML VIAL As Ordered ONE (16:35)
[2023-09-15] MEDS: LIDOCAINE W/EPINEPHRINE 1% 20ML VIAL As Ordered ONE (16:39)
[2023-09-15] MEDS: TRANEXAMIC ACID 100 MG/ML 10ML VIAL As Ordered ONE (16:40)
[2023-09-15] MEDS ORDERED: PHENYLephrine 500MCG 5ML (100MCG/ML) SYRINGE As Ordered ONE (17:48)
[2023-09-15] MEDS ORDERED: oxyCODONE 5MG TAB PO PRN (18:00)
[2023-09-15] MEDS ORDERED: METOCLOPRAMIDE INJ 10MG/2ML VIAL IV PRN (18:00)
[2023-09-15] MEDS ORDERED: diphenhydrAMINE 50MG/ML VIAL IV PRN (18:00)
[2023-09-15] MEDS ORDERED: fentaNYL 100 MCG/2 ML INJECTION IV PRN (18:00)
[2023-09-15] MEDS ORDERED: ONDANSETRON 4MG 2ML VIAL IV PRN (18:00)
[2023-09-15] MEDS ORDERED: HYDROMORPHONE HCL 0.5 MG/ 0.5 ML SYRINGE IV PRN (18:00)
[2023-09-15] MEDS ORDERED: OXYC-517 PO (18:32)
[2023-09-15] MEDS: LABETALOL 100MG/20ML VIAL IV PRN (19:01)
[2023-09-15 19:07] VITALS: BP 157/89
[2023-09-15 19:20] VITALS: BP 163/81; TEMP 97.6; O2SAT 98
== END 2023-09-15 20:17 | disposition home or self-care (01) ==
LOC: M SDC 14:34
PROVIDERS: ATTEND Student in an Organized Health Care Education/Training Program
DX: T84.84XA Pain due to internal orthopedic prosthetic devices, implants and grafts, initial encounter (principal); Y79.2 Prosthetic and other implants, materials and accessory orthopedic devices associated with adverse incidents; E78.00 Pure hypercholesterolemia, unspecified; J44.9 Chronic obstructive pulmonary disease, unspecified; Z79.899 Other long term (current) drug therapy; Z79.51 Long term (current) use of inhaled steroids; Z95.5 Presence of coronary angioplasty implant and graft; F17.210 Nicotine dependence, cigarettes, uncomplicated
CPT/HCPCS: 20680; 73020; 76000; C9290; J0131; J0665; J1100; J1170; J1885; J1920; J2371; J2405; J3370

== ENCOUNTER → 2023-10-04 | Outpatient (CLI) | payer OTHER ==
[~2023-10-04] MED LIST changes: +DOXY-440 PO; -DOXY-444 PO; +OXYC-517 PO
== END ==
LOC: M SOG 12:00
PROVIDERS: ATTEND Student in an Organized Health Care Education/Training Program
DX: S43.102D Unspecified dislocation of left acromioclavicular joint, subsequent encounter (principal)

== ENCOUNTER 2023-11-24 14:34 | Emergency (ER) | payer OTHER ==
[~2023-11-24] VITALS: Ht 170.2 cm; Wt 72.6 kg
[~2023-11-24 14:34] MED LIST changes: -AZEL0.055 NARES; +AZEL1SPR4 NARES
[2023-11-24 15:52] LABS: BASO % 0.3 % (0.0-1.0); EOS # 0.3 10^3/uL (0.0-0.5); EOS % 3.3 % (0.0-3.0); HEMOGLOBIN 14.2 g/dl (13.5-17.5); LYMPH # 2.5 10^3/uL (1.5-5.0); LYMPH % 27.9 % (24.0-44.0); MEAN CORPUSCULAR HEMOGLOBIN 30.1 pg (27.0-33.0); MEAN CORPUSCULAR HGB CONC 34.6 g/dl (32.0-36.5); MEAN CORPUSCULAR VOLUME 86.9 fl (80.0-96.0); MONO # 0.8 10^3/uL (0.0-0.8); MONO % 8.5 % (2.0-8.0); NEUTROPHILS # 5.2 10^3/uL (1.5-8.5); NEUTROPHILS % 58.8 % (36.0-66.0); PLATELET COUNT, AUTOMATED 218 10^3/uL (150-450); RED BLOOD COUNT 4.72 10^6/uL (4.30-6.10); WHITE BLOOD COUNT 8.8 10^3/uL (4.0-10.0)
[2023-11-24 16:05] LABS: INR 1.05; PARTIAL THROMBOPLASTIN TIME 25.9 SECONDS (24.8-34.2); PROTHROMBIN TIME 13.4 SECONDS (12.5-14.5)
[2023-11-24 16:15] LABS: C REACTIVE PROTEIN QUANTITATIV < 0.40 MG/DL (<1.0); LIPASE 38 U/L (12-53)
[2023-11-24 16:17] LABS: ALBUMIN 3.7 G/DL (3.2-5.2); ALKALINE PHOSPHATASE 126 U/L (46-116); ALT/SGPT 17 U/L (7.0-40); AST/SGOT 20 U/L (<34); BILIRUBIN,DIRECT < 0.1 MG/DL (<0.4); BILIRUBIN,TOTAL 0.4 MG/DL (0.3-1.2); BLOOD UREA NITROGEN 15 MG/DL (9-23); CALCIUM LEVEL 9.5 MG/DL (8.5-10.1); CARBON DIOXIDE LEVEL 29 MMOL/L (20-31); CHLORIDE LEVEL 102 MMOL/L (98-107); CK-MB VALUE MASS < 1.0 NG/ML (<3.6); CREATININE FOR GFR 0.67 MG/DL (0.70-1.30); GLOMERULAR FILTRATION RATE > 60.0 (>56); GLUCOSE, FASTING 96 MG/DL (60-100); POTASSIUM SERUM 5.5 MMOL/L (3.5-5.1); SODIUM LEVEL 133 MMOL/L (136-145); TOTAL PROTEIN 6.4 G/DL (5.7-8.2)
[2023-11-24 16:18] LABS: FREE T4 0.77 NG/DL (0.89-1.76)
[2023-11-24 16:19] LABS: THYROID STIMULATING HORMONE 1.744 uIU/ML (0.55-4.78)
[2023-11-24 16:20] LABS: CPK CREATINE PHOSPHOKINASE 73 U/L (46-171); MB/CK RELATIVE INDEX 1.36 (< OR =4)
[2023-11-24] MEDS ORDERED: ISOVUE-370 76% 100ML VIAL As Ordered ONE (17:00)
[2023-11-24 17:03] VITALS: BP 148/70
[2023-11-24] MEDS: NITROGLYCERIN 2% OINT 1 GM *U/D* PKT TOP ONE (17:03)
[2023-11-24 18:11] LABS: CK-MB VALUE MASS < 1.0 NG/ML (<3.6)
[2023-11-24 18:14] LABS: CPK CREATINE PHOSPHOKINASE 69 U/L (46-171); MB/CK RELATIVE INDEX 1.44 (< OR =4)
[2023-11-24 18:31] LABS: D-DIMER QUANT < 0.27 ug/mL (<0.5)
[2023-11-24] MEDS ORDERED: PANTOPRAZOLE 40MG VIAL IV ONE (18:40)
[2023-11-24] MEDS: MAALOX 30 ML SUSP *UDC PO ONE (19:08)
[2023-11-24] MEDS: PANTOPRAZOLE 40MG TAB (PROTONIX) PO ONE (19:08)
[2023-11-24] MEDS ORDERED: KETOROLAC 30 MG/ML 1ML VIAL IV ONE (20:45)
[2023-11-24 20:49] VITALS: TEMP 98.8
[2023-11-24] MEDS: KETOROLAC 60MG 2ML VIAL IM ONE (20:59)
[2023-11-24] MEDS ORDERED: NAPR-837 PO (22:25)
[2023-11-24 22:31] VITALS: BP 149/78
[2023-11-24 22:34] VITALS: O2SAT 97
== END 2023-11-24 22:41 | disposition home or self-care (01) ==
LOC: M ED 14:34
DX: R07.9 Chest pain, unspecified (principal); I25.10 Atherosclerotic heart disease of native coronary artery without angina pectoris; I10 Essential (primary) hypertension; Z95.5 Presence of coronary angioplasty implant and graft; Z87.891 Personal history of nicotine dependence; Z79.82 Long term (current) use of aspirin; Z79.899 Other long term (current) drug therapy; Z91.010 Allergy to peanuts
CPT/HCPCS: 71046; 71275; 80048; 80076; 82550; 82553; 83690; 83880; 84439; 84443; 84484; 85025; 85379; 85610; 85730; 86140; 93005; 93041; 94760; 96372; 99285; J1885

== ENCOUNTER 2023-11-29 15:46 | Inpatient (IN) | payer OTHER ==
[~2023-11-29] VITALS: Ht 170.2 cm; Wt 63.6 kg
[~2023-11-29 15:46] MED LIST changes: +NAPR-837 PO
[2023-11-29] MEDS ORDERED: NAPR375T5 PO (16:29)
[2023-11-29 18:16] LABS: BASO % 0.4 % (0.0-1.0); EOS # 0.3 10^3/uL (0.0-0.5); EOS % 3.7 % (0.0-3.0); HEMOGLOBIN 14.9 g/dl (13.5-17.5); LYMPH # 2.1 10^3/uL (1.5-5.0); LYMPH % 23.8 % (24.0-44.0); MEAN CORPUSCULAR HEMOGLOBIN 29.9 pg (27.0-33.0); MEAN CORPUSCULAR HGB CONC 34.7 g/dl (32.0-36.5); MEAN CORPUSCULAR VOLUME 86.2 fl (80.0-96.0); MONO # 0.7 10^3/uL (0.0-0.8); MONO % 7.8 % (2.0-8.0); NEUTROPHILS # 5.7 10^3/uL (1.5-8.5); NEUTROPHILS % 63.3 % (36.0-66.0); PLATELET COUNT, AUTOMATED 211 10^3/uL (150-450); RED BLOOD COUNT 4.99 10^6/uL (4.30-6.10)
[2023-11-29 18:43] LABS: INR 1.01; PARTIAL THROMBOPLASTIN TIME 25.9 SECONDS (24.8-34.2)
[2023-11-29 18:58] LABS: ALBUMIN 4.4 G/DL (3.2-5.2); BILIRUBIN,DIRECT 0.1 MG/DL (<0.4); BILIRUBIN,TOTAL 0.7 MG/DL (0.3-1.2); TOTAL PROTEIN 7.2 G/DL (5.7-8.2)
[2023-11-29] MEDS ORDERED: ISOVUE-370 76% 100ML VIAL As Ordered ONE (20:11)
[2023-11-29] MEDS: LIDOCAINE 2% 5ML JELLY UROJET TOP ONE (20:55)
[2023-11-29] MEDS ORDERED: ATOR40TA75 PO (21:19)
[2023-11-29] MEDS ORDERED: HOME MED LIST COMPLETE! XX SCH (21:20)
[2023-11-29] MEDS ORDERED: ALBUTEROL 90 MCG/ACT 8GM HFA INHALER INH PRN (22:55)
[2023-11-29] MEDS: ESCITALOPRAM OXALATE 10 MG TAB (LEXAPRO) PO SCH (23:09)
[2023-11-29] MEDS: ATORVASTATIN 20 MG TAB PO SCH (23:09)
[2023-11-29] MEDS: LR 1,000 ML IV SCH (23:09)
[2023-11-29] MEDS: traZODone 100 MG TAB PO SCH (23:09)
[2023-11-30 06:59] LABS: HEMATOCRIT 41.4 % (42.0-52.0); HEMOGLOBIN 14.1 g/dl (13.5-17.5); MEAN CORPUSCULAR HEMOGLOBIN 30.1 pg (27.0-33.0); MEAN CORPUSCULAR HGB CONC 34.1 g/dl (32.0-36.5); MEAN CORPUSCULAR VOLUME 88.5 fl (80.0-96.0); PLATELET COUNT, AUTOMATED 184 10^3/uL (150-450); RED BLOOD COUNT 4.68 10^6/uL (4.30-6.10); WHITE BLOOD COUNT 8.6 10^3/uL (4.0-10.0)
[2023-11-30 07:24] LABS: BLOOD UREA NITROGEN 19 MG/DL (9-23); CALCIUM LEVEL 8.9 MG/DL (8.5-10.1); CARBON DIOXIDE LEVEL 29 MMOL/L (20-31); CHLORIDE LEVEL 105 MMOL/L (98-107); CREATININE FOR GFR 0.72 MG/DL (0.70-1.30); GLOMERULAR FILTRATION RATE > 60.0 (>56); GLUCOSE, FASTING 87 MG/DL (60-100); MAGNESIUM LEVEL 1.9 MG/DL (1.8-2.4); POTASSIUM SERUM 4.2 MMOL/L (3.5-5.1); SODIUM LEVEL 140 MMOL/L (136-145)
[2023-11-30] MEDS: METOPROLOL SUCC *XL* 12.5MG PER 1/2 TAB (TopROL *XL*) PO SCH (12:11)
[2023-11-30 14:05] VITALS: BP 120/66; TEMP 97.7; O2SAT 97
[2023-11-30] MEDS: ACETAMINOPHEN TAB 650MG DOSE (2X325MG) PO PRN (14:28)
[2023-11-30 20:00] VITALS: BP 120/66; TEMP 97.7; O2SAT 97
[2023-11-30 20:50] VITALS: BP 101/57; TEMP 97; O2SAT 96
[2023-12-01] VITALS (11 sets, daily range): BP systolic 105–136; BP diastolic 55–79; TEMP 97.3–98.1; O2SAT 89–97
[2023-12-01 06:07] LABS: HEMATOCRIT 39.5 % (42.0-52.0); HEMOGLOBIN 13.3 g/dl (13.5-17.5); MEAN CORPUSCULAR HEMOGLOBIN 29.4 pg (27.0-33.0); MEAN CORPUSCULAR HGB CONC 33.7 g/dl (32.0-36.5); MEAN CORPUSCULAR VOLUME 87.4 fl (80.0-96.0); PLATELET COUNT, AUTOMATED 179 10^3/uL (150-450); RED BLOOD COUNT 4.52 10^6/uL (4.30-6.10); WHITE BLOOD COUNT 8.1 10^3/uL (4.0-10.0)
[2023-12-01 06:34] LABS: ALBUMIN 3.4 G/DL (3.2-5.2); ALKALINE PHOSPHATASE 131 U/L (46-116); ALT/SGPT 13 U/L (7.0-40); AST/SGOT 11 U/L (<34); BILIRUBIN,TOTAL 0.5 MG/DL (0.3-1.2); BLOOD UREA NITROGEN 18 MG/DL (9-23); CALCIUM LEVEL 8.7 MG/DL (8.5-10.1); CARBON DIOXIDE LEVEL 27 MMOL/L (20-31); CHLORIDE LEVEL 109 MMOL/L (98-107); CREATININE FOR GFR 0.72 MG/DL (0.70-1.30); GLOMERULAR FILTRATION RATE > 60.0 (>56); GLUCOSE, FASTING 96 MG/DL (60-100); POTASSIUM SERUM 4.2 MMOL/L (3.5-5.1); SODIUM LEVEL 140 MMOL/L (136-145); TOTAL PROTEIN 5.9 G/DL (5.7-8.2)
[2023-12-01] MEDS ORDERED: fentaNYL 100 MCG/2 ML INJECTION As Ordered ONE (10:36)
[2023-12-01] MEDS ORDERED: ONDANSETRON 4MG 2ML VIAL As Ordered ONE (10:38)
[2023-12-01] MEDS ORDERED: LIDOCAINE 2% 100MG/5ML SDV (FOR ANES.) As Ordered ONE (10:38)
[2023-12-01] MEDS ORDERED: ACETAMINOPHEN 1000MG 100ML IV BAG As Ordered ONE (10:38)
[2023-12-01] MEDS ORDERED: KETOROLAC 60MG 2ML VIAL As Ordered ONE (10:38)
[2023-12-01] MEDS: ceFAZolin 2 GM/D5W 50 ML IV BAG As Ordered ONE (12:19)
[2023-12-01] MEDS ORDERED: HYDROMORPHONE HCL 0.5 MG/ 0.5 ML SYRINGE IV PRN (12:40)
[2023-12-01] MEDS ORDERED: oxyCODONE 5MG TAB PO PRN (12:40)
[2023-12-01] MEDS ORDERED: LR 1,000 ML IV SCH (12:40)
[2023-12-01] MEDS ORDERED: ONDANSETRON 4MG 2ML VIAL IV PRN (12:40)
[2023-12-01] MEDS ORDERED: fentaNYL 100 MCG/2 ML INJECTION IV PRN (12:40)
[2023-12-01] MEDS ORDERED: ACET1TAB55 PO (21:05)
[2023-12-02 04:00] VITALS: BP 127/69; TEMP 97.7; O2SAT 96
[2023-12-02 06:25] LABS: HEMATOCRIT 39.2 % (42.0-52.0); HEMOGLOBIN 13.3 g/dl (13.5-17.5); MEAN CORPUSCULAR HEMOGLOBIN 29.6 pg (27.0-33.0); MEAN CORPUSCULAR HGB CONC 33.9 g/dl (32.0-36.5); MEAN CORPUSCULAR VOLUME 87.3 fl (80.0-96.0); PLATELET COUNT, AUTOMATED 191 10^3/uL (150-450); RED BLOOD COUNT 4.49 10^6/uL (4.30-6.10)
[2023-12-02 06:51] LABS: ALBUMIN 3.4 G/DL (3.2-5.2); ALKALINE PHOSPHATASE 121 U/L (46-116); ALT/SGPT 15 U/L (7.0-40); AST/SGOT 8 U/L (<34); BILIRUBIN,TOTAL 0.4 MG/DL (0.3-1.2); BLOOD UREA NITROGEN 17 MG/DL (9-23); CALCIUM LEVEL 9.2 MG/DL (8.5-10.1); CARBON DIOXIDE LEVEL 27 MMOL/L (20-31); CHLORIDE LEVEL 107 MMOL/L (98-107); CREATININE FOR GFR 0.67 MG/DL (0.70-1.30); GLOMERULAR FILTRATION RATE > 60.0 (>56); GLUCOSE, FASTING 110 MG/DL (60-100); POTASSIUM SERUM 4.7 MMOL/L (3.5-5.1); SODIUM LEVEL 139 MMOL/L (136-145); TOTAL PROTEIN 6.1 G/DL (5.7-8.2)
[2023-12-02 07:34] VITALS: BP 129/72; TEMP 97.9; O2SAT 96
[2023-12-02 08:34] VITALS: BP 129/72
[2023-12-02] MEDS: ENTRESTO 24-26MG TABLET (SACUBITRIL/VALSARTAN) PO SCH (10:09)
[2023-12-02] MEDS ORDERED: ENTR1TAB PO (10:15)
[2023-12-02] MEDS ORDERED: METO1TAB32 PO (10:15)
[2023-12-02 10:37] LABS: CHOLESTEROL LEVEL 107 MG/DL (<200); CHOLESTEROL RISK RATIO 2.34 (<5); HDL CHOLESTEROL 45.7 MG/DL (>40); LDL CHOLESTEROL 48.1 MG/DL (<100); NON-HDL-C 61.3 MG/DL; TRIGLYCERIDES LEVEL 66 MG/DL (<150)
== END 2023-12-02 11:35 | DRG 446 ==
LOC: M ED 15:46 → M ED INP 22:41 → EEVIPCON 22:41 → M MSPAV 11-30 14:05
PROVIDERS: ADMIT Preventive Medicine Undersea and Hyperbaric Medicine; ATTEND Internal Medicine
PROC: 0TCB8ZZ Extirpation of Matter from Bladder, Via Natural or Artificial Opening Endoscopic (ICD-10-PCS; 2023-12-01)
PROC: 0TBB8ZZ Excision of Bladder, Via Natural or Artificial Opening Endoscopic (ICD-10-PCS; principal; 2023-12-01 12:30)
DX: R31.0 Gross hematuria (principal); I11.0 Hypertensive heart disease with heart failure; I50.22 Chronic systolic (congestive) heart failure; C67.2 Malignant neoplasm of lateral wall of bladder; I25.10 Atherosclerotic heart disease of native coronary artery without angina pectoris; I25.2 Old myocardial infarction; R00.8 Other abnormalities of heart beat; E78.5 Hyperlipidemia, unspecified; F17.200 Nicotine dependence, unspecified, uncomplicated; Z79.82 Long term (current) use of aspirin; Z79.1 Long term (current) use of non-steroidal anti-inflammatories (NSAID); Z79.899 Other long term (current) drug therapy; Z91.010 Allergy to peanuts; Z91.018 Allergy to other foods; Z91.02 Food additives allergy status

== ENCOUNTER → 2023-12-15 | Outpatient (CLI) | payer OTHER ==
[~2023-12-15] MED LIST changes: +ACET1TAB55 PO; +ATOR40TA75 PO; +ENTR1TAB PO; +NAPR375T5 PO
== END ==
LOC: M CARPUL 11:26
PROVIDERS: ATTEND Physician Assistant Medical
DX: R01.1 Cardiac murmur, unspecified (principal); I08.8 Other rheumatic multiple valve diseases

== ENCOUNTER 2024-01-09 11:12 | Emergency (ER) | payer OTHER ==
[~2024-01-09] VITALS: Ht 170.2 cm; Wt 83.5 kg
[2024-01-09 11:14] VITALS: BP 145/63; TEMP 96.6; O2SAT 98
[2024-01-09 12:36] LABS: BASO % 0.5 % (0.0-1.0); EOS # 0.3 10^3/uL (0.0-0.5); HEMATOCRIT 39.2 % (42.0-52.0); HEMOGLOBIN 13.3 g/dl (13.5-17.5); LYMPH % 23.1 % (24.0-44.0); MEAN CORPUSCULAR HEMOGLOBIN 30.6 pg (27.0-33.0); MEAN CORPUSCULAR HGB CONC 33.9 g/dl (32.0-36.5); MEAN CORPUSCULAR VOLUME 90.1 fl (80.0-96.0); MONO # 0.9 10^3/uL (0.0-0.8); MONO % 10.6 % (2.0-8.0); NEUTROPHILS # 5.2 10^3/uL (1.5-8.5); NEUTROPHILS % 60.1 % (36.0-66.0); PLATELET COUNT, AUTOMATED 192 10^3/uL (150-450); RED BLOOD COUNT 4.35 10^6/uL (4.30-6.10); WHITE BLOOD COUNT 8.6 10^3/uL (4.0-10.0)
[2024-01-09 12:50] LABS: INR 1.05; PARTIAL THROMBOPLASTIN TIME 25.1 SECONDS (24.8-34.2); PROTHROMBIN TIME 13.3 SECONDS (12.5-14.5)
[2024-01-09 13:05] LABS: CK-MB VALUE MASS < 1.0 NG/ML (<3.6); LIPASE 33 U/L (12-53)
[2024-01-09 13:08] LABS: ALBUMIN 3.9 G/DL (3.2-5.2); ALKALINE PHOSPHATASE 100 U/L (46-116); ALT/SGPT 26 U/L (7.0-40); AST/SGOT 21 U/L (<34); BILIRUBIN,DIRECT 0.1 MG/DL (<0.4); BILIRUBIN,TOTAL 0.5 MG/DL (0.3-1.2); BLOOD UREA NITROGEN 17 MG/DL (9-23); CALCIUM LEVEL 9.1 MG/DL (8.5-10.1); CARBON DIOXIDE LEVEL 27 MMOL/L (20-31); CHLORIDE LEVEL 106 MMOL/L (98-107); CREATININE FOR GFR 0.75 MG/DL (0.70-1.30); GLOMERULAR FILTRATION RATE > 60.0 (>56); GLUCOSE, FASTING 78 MG/DL (60-100); POTASSIUM SERUM 4.9 MMOL/L (3.5-5.1); SODIUM LEVEL 137 MMOL/L (136-145); TOTAL PROTEIN 6.7 G/DL (5.7-8.2)
[2024-01-09 13:09] LABS: FREE T4 0.75 NG/DL (0.89-1.76); THYROID STIMULATING HORMONE 2.743 uIU/ML (0.55-4.78)
[2024-01-09 13:12] LABS: CPK CREATINE PHOSPHOKINASE 143 U/L (46-171); MB/CK RELATIVE INDEX 0.69 (< OR =4)
[2024-01-09] MEDS ORDERED: ISOVUE-370 76% 100ML VIAL As Ordered ONE (13:50)
[2024-01-09 13:56] LABS: CK-MB VALUE MASS < 1.0 NG/ML (<3.6)
[2024-01-09 13:58] LABS: CPK CREATINE PHOSPHOKINASE 133 U/L (46-171); MB/CK RELATIVE INDEX 0.75 (< OR =4)
[2024-01-09 14:24] LABS: RSV AMPLIFICATION NEGATIVE (NEGATIVE)
== END 2024-01-09 16:08 | disposition home or self-care (01) ==
LOC: M ED 11:12
DX: R07.9 Chest pain, unspecified (principal); R91.8 Other nonspecific abnormal finding of lung field; I25.10 Atherosclerotic heart disease of native coronary artery without angina pectoris; I25.2 Old myocardial infarction; I10 Essential (primary) hypertension; K21.9 Gastro-esophageal reflux disease without esophagitis; F41.9 Anxiety disorder, unspecified; F32.A Depression, unspecified; J44.9 Chronic obstructive pulmonary disease, unspecified; Z98.61 Coronary angioplasty status; Z87.891 Personal history of nicotine dependence; Z79.82 Long term (current) use of aspirin; Z79.899 Other long term (current) drug therapy; Z91.010 Allergy to peanuts; Z91.018 Allergy to other foods
CPT/HCPCS: 71045; 71275; 80048; 80076; 82550; 82553; 83690; 83880; 84439; 84443; 84484; 85025; 85610; 85730; 87631; 93005; 93041; 93970; 94760; 99284; Q9967

== ENCOUNTER 2024-01-21 15:20 | Emergency (ER) | payer OTHER ==
[~2024-01-21] VITALS: Ht 170.2 cm; Wt 86.6 kg
[2024-01-21 17:58] VITALS: BP 152/72; TEMP 98.3; O2SAT 99
== END 2024-01-21 18:08 | disposition home or self-care (01) ==
LOC: M ED 15:20
DX: S01.511D Laceration without foreign body of lip, subsequent encounter (principal); Y04.8XXA Assault by other bodily force, initial encounter; Y92.149 Unspecified place in prison as the place of occurrence of the external cause; Y93.9 Activity, unspecified; Y99.9 Unspecified external cause status; Z79.82 Long term (current) use of aspirin; Z79.899 Other long term (current) drug therapy; Z91.010 Allergy to peanuts; Z91.018 Allergy to other foods

== ENCOUNTER → 2025-04-25 | Outpatient (CLI) | payer MEDICAID, OTHER ==
[~2025-04-25] MED LIST changes: -ASPI-655 PO; +ASPI-737 PO; +BUPR-363 PO; -BUPR75TA5 PO; +DOXY-442 PO; -DOXY100C82 PO; +NAPR-1450 PO; -NAPR375T5 PO
== END ==
LOC: M RAD 09:51
PROVIDERS: ATTEND Nurse Practitioner Family
DX: M25.511 Pain in right shoulder (principal); M79.89 Other specified soft tissue disorders